=== PATIENT | female | born 1965 | race Caucasian/White ===

== ENCOUNTER 2019-08-02 01:28 | Inpatient (IN) | payer SELFPAY ==
[~2019-08-02] VITALS: Ht 165.1 cm; Wt 81.8 kg
[2019-08-02] VITALS (20 sets, daily range): BP systolic 92–116; BP diastolic 51–70; Ht 165.1 cm; Wt 81.8 kg
--- NOTE | ~2019-08-02 | HEMODYNAMI ---
PATIENT:MELISSA SALAS MEDICAL RECORD: [id number] : 63 [facility] DATE: 08/02/19 Generatedon:08/03/201911:57 Patient name: MELISSA SALAS Patient #: [id number] SSN: : 1965 Date of study: 08/03/2019 Page: Of Hemodynamic Procedure Report Patient Data Patient Demographics Procedure consent was obtained First Name: MELISSA Gender: Female Last Name: DEEPTHI : 1965 Patient #: [id number] Age: 54 year(s) Race: Unknown Additional ID: [id number] Contact details [address]: [address] [place] [address] State: [place] City: [place] Zip code: [address] Past Medical History Allergies Allergen Reaction Date Comments Reported Other allergy 08/03/2019 PCN, SULFA Admission Admission Data Admission Date: 08/02/2019 Admission Time: 2:00 Room #: [facility] Lab Results Lab Result Date: 08/03/2019 Lab Result Time: 0:00 Biochemistry Name Units Result Min Max BUN mg/dl 8 --(*---)-- 7 18 Creatinine mg/dl 0.5 -*(----)-- 0.6 1.3 eGFR ml/min 90 --(*---)-- 90 120 NONAFRICAN CBC Name Units Result Min Max Hematocrit % 39.4 -*(----)-- 42 54 Hemoglobin g/dl 13.7 --(*---)-- 13.5 17.5 Procedure Procedure Types Cath Procedure Diagnostic Procedure FFR/IVUS FFR Initial Sedation Charges Moderate Sedation up to 30 minutes PCI Procedure Coronary Stent Coronary Stent Initial Procedure Description Procedure Date Procedure Date: 08/03/2019 Procedure Start Time: 11:33 Procedure End Time: 11:56 Procedure Staff Name Function Parth Horan MD Performing Physician Patricia Goyal RT Monitor Marianne Salas RT Scrub Darnell Triana RT Machine Cementer Alicja Kang RN Nurse Procedure Data Cath Procedure Fluoroscopy Diagnostic fluoroscopy Total fluoroscopy Time: 3.8 time: 3.8 min min Diagnostic fluoroscopy Total fluoroscopy dose: 346 dose: 346 mGy mGy Contrast Material Contrast Material Type Amount (ml) Isovue 300 67 Entry Location Entry Primary Successful Side Size Upsize Upsize Entry Closure Succes sful Closure Location (Fr) 1 (Fr) 2 (Fr) Remarks Device Remarks Femoral Left 6 Fr Exoseal artery Short Estimated blood loss: 10 ml Procedure Complications No complications Procedure Medications Medication Administration Route Dosage 0.9% NaCl I.V. 100 ml/hr Oxygen etCO2 Nasal cannula 2 l/min Lidocaine 2% added to field 20 Heparin Flush Bag added to field 2 bags (1000units/500ml NS) Versed I.V. 2 mg Fentanyl I.V. 50 mcg Fentanyl I.V. 50 mcg Heparin Bolus I.V. 5000 units Hemodynamics Rest Heart Rate: 80 (bpm) Snapshots Pre Cath Intra NCS Post Cath Vital Signs Time Heart Resp SPO2 etCO2 NIBP (mmHg) Rhythm Pain Sedation Rate (ipm) (%) (mmHg) Status Level (bpm) 11:25:17 95 19 99 17.3 109/82(103) NSR 0 (11) 10(A) , No pain 11:29:24 97 18 99 8.2 98/61(75) NSR 0 (11) 10(A) , No pain 11:33:28 91 19 99 25.5 99/61(72) NSR 0 (11) 10(A) , No pain 11:38:15 90 17 98 12.7 95/58(75) NSR 0 (11) 10(A) , No pain 11:42:21 90 16 97 14 90/57(75) NSR 0 (11) 9(A) , No pain 11:46:25 89 16 98 14 100/58(78) NSR 0 (11) 10(A) , No pain 11:50:28 93 36 95 12 104/72(83) NSR 0 (11) 10(A) , No pain 11:54:36 94 18 95 12 109/68(85) NSR 0 (11) 10(A) , No pain Medications Time Medication Route Dose Verified Delivered Reason Notes Effectiveness by by 11:32:43 Versed I.V. 2 mg Parth Alicja for sedation Aung Kang RN 11:32:52 Fentanyl I.V. 50 Parth Alicja for sedation mcg Aung Kang RN 11:35:25 0.9% NaCl I.V. 100 Parth Parth used for ml/hr Aung Horan MD procedure 11:35:31 Oxygen etCO2 2 Parth Alba used for Nasal l/min Aung Horan MD procedure cannula 11:35:37 Lidocaine 2% added 20ml Parth Aprth for local to vial Aung Horan MD anesthetic field 11:35:43 Heparin Flush added 2 Parth Parth used for Bag to bags Aung Horan MD procedure (1000units/500ml field NS) 11:38:57 Fentanyl I.V. 50 Parth Alicja for sedation mcg Aung Kang RN 11:44:14 Heparin Bolus I.V. 5000 Parth Alicja for verified units Aung Kang antiplatelet with Dr. CURRIE therapy Anug Procedure Log Time Note 11:00:05 Darnell WHITMAN(R) sent for patient. Start room use. 11:03:06 Signed procedure consent form obtained from patient. 11:03:09 Procedure Status Urgent Heart Cath (IP). 11:03:11 Time tracking: Regular hours (M-F 7:00 - 5:00) 11:03:14 Plan of Care:Hemodynamics will remain stable., Cardiac rhythm will remain stable., Comfort level will be maintained., Respiratory function will remain adequate., Patient/ family verbilizes understanding of procedure., Procedure tolerated without complication., Recovers from procedure without complications.. 11:03:35 Patient allergic to Other allergyPCN, SULFA 11:04:19 Lab Result : BUN 8 mg/dl 11::19 Lab Result : Creatinine 0.5 mg/dl 11::19 Lab Result : eGFR NONAFRICAN 90 ml/min 11::19 Lab Result : Hemoglobin 13.7 g/dl 11::19 Lab Result : Hematocrit 39.4 % 11:11:51 Patient received from CVICU to CCL 1 Alert and oriented. Tansferred to table in Supine position. 11:11:52 Warm blankets applied, and rangel hugger turned on for patient comfort. 11:11:53 Correct patient and procedure confirmed by team. 11:11:53 ECG and BP/O2 sat monitors applied to patient. 11:24:19 Vital chart was started 11:27:58 Baseline sample Acquired. 11:28:01 Rhythm: sinus rhythm 11:28:02 Full Disclosure recording started 11::03 Pre-procedure instructions explained to patient. 11:28:03 Pre-op teaching completed and patient verbalized understanding. 11:28:05 Family in waiting room. 11:28:06 Patient NPO since Midnight. 11:28:08 Is patient on blood thinner?Yes 11:28:10 ACC The patient was administered the following blood thiners within the last 24 hours: ACCPlavix 11:28:11 Patient diabetic? Yes. 11:28:12 If diabetic: On Metformin? No 11:29:39 Previous problem with sedation/anesthesia? No ? 11:29:40 Snore? Yes 11:29:40 Sleep apnea? No 11:29:41 Deviated septum? No 11:29:42 Opens mouth fully? Yes 11:29:44 Sticks out tongue? Yes 11:29:47 Dentures? No ? 11:30:37 Airway obstruction? No ? 11:30:40 Pre procedure: left dorsailis pedis pulse 1+ Palpable, but thready & weak; easily obliterated 11:30:42 Patient pain scale 0/10 ?. 11:30:47 IV patent on arrival in left forearm with 0.9% NaCl at [facility]. 11:30:49 Lab results completed and on chart. 11:30:51 Left groin area was prepped with chlora-prep and draped in sterile fashion 11:30:51 Alarms reviewed by R. N. 11:30:52 Sharps counted by scrub and verified by R.N. 11:30:57 Use device set CATH PACK 11:30:58 ACIST Syringe (59302) opened to sterile field. 11:30:59 ACIST Hand Control (28353) opened to sterile field. 11:30:59 ACIST Manifold (83158) opened to sterile field. 11:30:59 Medline Cath Pack ([id number]) opened to sterile field. 11:31:00 Bag Decanter (2001S) opened to sterile field. 11:31:00 EMERALD Guide Wire (793-309) opened to sterile field. 11:31:05 --------ALL STOP TIME OUT------ 11:31:06 Final Timeout: patient, procedure, and site verified with staff and physician. All members of the team are in agreement. 11:31:07 Left groin site verified by team. 11:31:09 Fire Safety Assessment: A--An alcohol-based skin anteseptic being used preoperatively., C--Open oxygen or nitrous oxide is being used., D--An ESU, laser, or fiber-optic light is being used. 11:31:14 Physical assessment completed. ASA score P 2 - A patient with mild systemic disease as per Parth Horan MD. 11:31:17 1) 90+ Normal kidney functon but urine findings or structural abnormalities or genetic trait point to kidney disease. 11:31:20 Maximum allowable contrast dose (3.7 X eGFR X 0.75)250 ml. 11:31:22 Sedation plan: IV Moderate Sedation Medication:Versed, Fentanyl 11:32:43 Versed 2 mg I.V. was administered by Alicja Kang RN; for sedation; 11:32:52 Fentanyl 50 mcg I.V. was administered by Alicja Kang RN; for sedation; 11:33:20 Procedure started. 11:33:32 Local anesthetic to right femoral artery with Lidocaine 2% by Parth Horan MD.INITIAL ACCESS ONLY 11:33:54 SHEATH 6FR [place] (SSG315) opened to sterile field. 11:33:54 CHOICE PT Extra Support 182cm wire ([id number]) opened to sterile field. 11:33:55 INFLATOR Merit BasixCompak (XX0924) opened to sterile field. 11:33:55 TUBING High Pressure Extension Tubing (Albright) ([id number]) opened to sterile field. 11:33:59 GUIDE 6FR XBLAD 3.5 catheter ([id number]) opened to sterile field. 11:34:06 GUIDE 6FR AR 2.0 SH catheter ([id number]) opened to sterile field. 11:35:25 0.9% NaCl 100 ml/hr I.V. was administered by Parth Horan MD; used for procedure; 11:35:31 Oxygen 2 l/min etCO2 Nasal cannula was administered by Parth Horan MD; used for procedure; 11:35:37 Lidocaine 2% 20ml vial added to field was administered by Parth Horan MD; for local anesthetic; 11:35:43 Heparin Flush Bag (1000units/500ml NS) 2 bags added to field was administered by Parth Horan MD; used for procedure; 11:36:26 A 6 Fr Short sheath was inserted into the Left Femoral artery 11:37:40 6 Fr XBLAD 3.5 guide catheter was inserted over the wire 11:38:03 NextGxDXrata Plus pressure wire (13361F) opened to sterile field. 11:38:56 FFR/IFR wire advanced. 11:38:57 Fentanyl 50 mcg I.V. was administered by Alicja Kang RN; for sedation; 11:39:59 Wire advanced across lesion. 11:40:21 Pre PCI Site: [place] mRCA has 95% stenosis. 11:40:38 mCirc lesion measured at .90 with IFR 11:40:46 Wire removed. 11:40:46 Guide catheter removed. 11:40:52 6 Fr AR 2 SH guide catheter was inserted over the wire 11:42:24 CHOICE ES 182 wire advanced. 11:43:06 Wire advanced across lesion. 11:43:53 Place stent Inflation Number: 1 A COBRA RX 2.5 X 18 Stent was prepped and advanced across the Mid RCA . The stent was deployed at 11 MAGALIS for 0:00 (min:sec) . 11:44:09 Stent catheter was removed intact over wire. 11:44:14 Heparin Bolus 5000 units I.V. was administered by Alicja Kang RN; for antiplatelet therapy; verified with Dr. Horan 11:45:26 ACT drawn and resulted at 400> seconds. (normal therapeutic range 180-240 seconds). 11:45:49 Place stent Inflation Number: 1 A COBRA RX 2.5 X 24 Stent was prepped and advanced across the Prox RCA . The stent was deployed at 13 MAGALIS for 0:00 (min:sec) . 11:46:31 Stent catheter was removed intact over wire. 11:46:31 Guide catheter removed. 11:46:32 Wire removed. 11:46:40 EXOSEAL 6Fr (EX600) opened to sterile field. 11:46:50 Sheath removed intact; hemostasis achieved with Exoseal to the Left Femoral artery. 11:47:04 Procedure ended.(Physican Out) 11:48:48 Fluoroscopy time 03.80 minutes. 11:48:52 Fluoroscopy dose: 346 mGy 11:48:52 Flurop Dose total: 346 11:48:56 Contrast amount:Isovue 300 67ml. 11:49:01 Dose Area Product 25588 mGy/cm. 11:49:03 Maximum allowable dose exceeded? No. 11:49:04 Sharps counted by scrub and verified by R.N. 11:49:08 Post-op/insertion site Left Femoral artery dressed using a 4 x 4 and Tegaderm. 11:49:11 Post-procedure physical assessment completed. ASA score P 3 - A patient with severe systemic disease as per Parth Horan MD. 11:49:13 Post procedure rhythm: sinus rhythm 11:49:14 Estimated blood loss: 10 ml 11:49:16 Post procedure instruction explained to patient.Patient verbalizes understanding. 11:49:16 Patient needs reinforcement of post procedure teaching. 11:49:31 Procedure type changed to Cath procedure, Diagnostic procedure, FFR/IVUS, FFR Initial, Sedation Charges, Moderate Sedation up to 30 minutes, PCI procedure, Coronary Stent, Coronary Stent Initial 11:50:05 Procedure and supply charges have been captured, reviewed, submitted and are correct. 11:50:08 Procedure Complication : No complications 11:56:43 Vital chart was stopped 11:56:43 See physician's report for complete and final results. 11:56:47 Report given to CVICU. 11:56:49 Patient transfered to CVICU with Bed. 11:56:51 Procedure ended. 11:56:51 Full Disclosure recording stopped 11:56:55 End room use (Document Last) Intervention Summary Intervention Notes Time ActionType Lesion and Equipment Action# Pressure Duration Attributes Used 11:43:53 Place stent Mid RCA COBRA RX 1 11 00:00 2.5 X 18 Stent 11:45:49 Place stent Prox RCA COBRA RX 1 13 00:00 2.5 X 24 Stent Device Usage Item Name Manufacture Quantity Catalog Number Hospital Part Current Minimal Lot# / Charge Number Stock Stock Serial# Code ACIST Syringe Acist 1 63741 169547 003596 047585 20 (87259) Aircom ACIST Hand Acist 1 08968 399195 562875 668400 5 Control Medical (80320) Tek[employer]rix [employer] Inc ACIST Manifold Acist 1 38998 246361 927323 693354 5 (83811) Medical Systems Inc Medline Cath Medline 1 [id number] 034940 55906 327248 5 Pack ([id number]) Bag Decanter Microtek 1 2001S 019267 71041 056001 5 (2001S) Medical Inc. EMERALD Guide Cardinal 1 502455 706656 461309 240562 5 Wire (502-192) Health SHEATH 6FR Terumo 1 FDH695 101816 155816 917749 40 [place] (WHS167) CHOICE PT [place] 1 [id number] 640056 327135 531114 5 Extra Support Scientific 182cm wire ([id number]) INFLATOR Merit Merit 1 AV4548 767814 208183 842228 15 CondoGala Medical (KY8663) TUBING High Merit 1 [id number] 694589 78567 628621 10 Pressure Medical Extension Tubing (Albright) ([id number]) GUIDE 6FR Cardinal 1 [id number] 976250 037512 672854 10 XBLAD 3.5 Health catheter (41510151) GUIDE 6FR AR Medtronic 1 [id number] 821648 78918 292582 1 2.0 SH catheter ([id number]) Katy Katy 1 91699D 473222 [id number] 248966 5 Verrata Plus pressure wire (21940G) COBRA RX 2.5 X Celonova 1 083-50-09157 007023 [id number] 2017904 2 0 [id number] 18 stent Biosciences (085-72-21116) COBRA RX 2.5 X Celonova 1 [id number] 672652 [id number] 2900800 2 [id number] 24 stent Biosciences (992-99-41220) EXOSEAL 6Fr Cardinal 1 EX600 072543 180213 051030 10 (EX600) Health Signature Audit [place] Stage Time Signature Unsigned Intra-Procedure 08/03/2019 Patricia Goyal 11:57:06 AM RT(R) Signatures Performing Physician : Signature : Parth Horan MD Date : Time : Monitor : Patricia Goyal Signature : RT Date : Time : Nurse : Alicja Jorge Luis RN Signature : Date : Time : [address] [place] [address]
--- NOTE | ~2019-08-02 | HEMODYNAMI ---
PATIENT:MELISSA LACEY MEDICAL RECORD: [id number] : 63 LOCATION:[facility] D.CV ADMISSION DATE: 08/02/19 Generatedon:08/02/20193:20 Patient name: MELISSA LACEY Patient #: [id number] SSN: : 1965 Date of study: 08/02/2019 Page: Of Hemodynamic Procedure Report Patient Data Patient Demographics Procedure consent was obtained First Name: MELISSA Gender: Female Last Name: DEEPTHI : 1965 Patient #: [id number] Age: 54 year(s) Race: Unknown Additional ID: [id number] Contact details [address]: [address] [place] [address] State: [place] City: [place] Zip code: [address] Admission Admission Data Admission Date: 08/02/2019 Admission Time: 2:00 Room #: D.CV08 Procedure Procedure Types Cath Procedure Diagnostic Procedure LHC LHC w/Coronaries Sedation Charges Moderate Sedation up to 15 minutes PCI Procedure AMI/SVG/SUPERVISOR DISPLAY FABRICATION PTCA or Stent AMI-BMS/TOMÁS Initial Procedure Description Procedure Date Procedure Date: 08/02/2019 Procedure Start Time: 2:39 Procedure End Time: 2:51 Procedure Staff Name Function Melody Jarrett RT Monitor Benita Tai RN Nurse Parth Horan MD Performing Physician Wayne Swanson RT Scrub Procedure Data Cath Procedure Fluoroscopy Diagnostic fluoroscopy Total fluoroscopy Time: 2.6 time: 2.6 min min Diagnostic fluoroscopy Total fluoroscopy dose: 750 dose: 750 mGy mGy Contrast Material Contrast Material Type Amount (ml) Isovue 300 91 Entry Location Entry Primary Successful Side Size Upsize Upsize Entry Closure Succes sful Closure Location (Fr) 1 (Fr) 2 (Fr) Remarks Device Remarks Femoral Right 6 Fr Exoseal artery Short Estimated blood loss: 5 ml Diagnostic catheters Device Type Used For End Catheter Placement MULTIPACK Pigtail 5 Fr LV Angiography catheter MULTIPACK JL 4.0 5Fr Left Coronary catheter Angiography MULTIPACK 3DRC 5Fr Right Coronary catheter Angiography Procedure Complications No complications Procedure Medications Medication Administration Route Dosage Oxygen etCO2 Nasal cannula 2 l/min Lidocaine 2% added to field 20 Heparin Flush Bag added to field 2 bags (1000units/500ml NS) 0.9% NaCl I.V. bolus 250 ml Zofran I.V. 4 mg Integrilin (Bolus I.V. 7.3 ml 2mg/ml) Heparin Drip 1000 units/hr (07065zapsl/250 D5W) Heparin Bolus I.V. 3000 units Nitroglycerin IC/IA I.C. 200 mcg Nitroglycerin IC/IA I.C. 100 mcg Integrilin Drip I.V. drip 13.3 ml/hr (75mg/100ml) Integrilin (Bolus 7.3 ml 2mg/ml) Plavix P.O. 600 mg Versed I.V. 0.5 mg Hemodynamics Rest Heart Rate: 58 (bpm) Pressure Samples Time Site Value (mmHg) Purpose Heart Use Rate(bpm) 2:39 LV 99/70,72 Snapshot 81 Snapshots Pre Cath Intra NCS Post Cath Vital Signs Time Heart Resp SPO2 etCO2 NIBP Rhythm Pain Sedation Rate (ipm) (%) (mmHg) (mmHg) Status Level (bpm) 2:27:43 84 18 96 20.2 109/68(91) NSR 0 (11) 10(A) , No pain 2:31:50 80 24 95 28.4 110/70(88) NSR 0 (11) 10(A) , No pain 2:35:58 83 18 92 26.2 93/67(81) NSR 0 (11) 10(A) , No pain 2:40:04 80 19 100 25.4 94/64(75) NSR 0 (11) 10(A) , No pain 2:44:10 82 19 98 12.7 96/64(79) NSR 0 (11) 10(A) , No pain 2:48:16 86 18 98 26.2 88/60(79) NSR 0 (11) 10(A) , No pain 2:57:41 83 18 100 21 102/64(82) NSR 0 (11) 10(A) , No pain Medications Time Medication Route Dose Verified Delivered Reason Not es Effectiveness by by 2:29:58 Heparin Drip I.V. 1000 Parth Joy Per physician (24107hhkhq/250 drip, units/hr Aung Tai RN D5W) stopped at 0229 2:32:18 Oxygen etCO2 2 l/min Patrh Joy used for Nasal Aung Tai RN procedure cannula 2:32:26 Lidocaine 2% added 20ml Parth Alba for local to vial Aung Horan MD anesthetic field 2:32:32 Heparin Flush added 2 bags Parth Alba used for Bag to Aung Horan MD procedure (1000units/500ml field NS) 2:32:51 0.9% NaCl I.V. 250 ml Parth Jyo Per physician x 2 bolus Aung Tai RN boluses delivered total of 500 mls. 2:32:58 Zofran I.V. 4 mg Parth Joy Per physician Aung Tai RN 2:39:30 Integrilin I.V. 7.3 ml Parth Joy for was clay (Bolus 2mg/ml) Aung Tai RN antiplatelet 2.7 ml of therapy vial 2:41:50 Versed I.V. 0.5 mg Parth Joy for sedation Aung Tai RN 2:43:31 Heparin Bolus I.V. 3000 Parth Joy for imelda ifed units Aung Tai RN anticoagulation with dr horan 2:47:13 Nitroglycerin I.C. 200 mcg Parth Alba for IC/IA Aung Horan MD vasodilation 2:48:30 Nitroglycerin I.C. 100 mcg Parth Alba for IC/IA Aung Horan MD vasodilation 2:49:21 Integrilin Drip I.V. 13.3 Parth Joy for (75mg/100ml) drip ml/hr Aung Tai RN antiplatelet therapy 2:50:43 Integrilin IC 7.3 ml Parth Alba for was clay (Bolus 2mg/ml) Aung Horan MD antiplatelet 2.7 ml of therapy vial 3:04:40 Plavix P.O. 600 mg Parth Joy for Aung Tai RN antiplatelet therapy Procedure Log Time Note 2:08:00 Diagnostic Cath Status : Elective 2:08:28 Procedure Status Emergent Heart Cath (AMI). 2:08:32 Wayne Swanson RT(R) sent for patient. Start room use. 2:08:33 Time tracking: Regular hours (M-F 7:00 - 5:00) 2:08:38 Plan of Care:Hemodynamics will remain stable., Cardiac rhythm will remain stable., Comfort level will be maintained., Respiratory function will remain adequate., Patient/ family verbilizes understanding of procedure., Procedure tolerated without complication., Recovers from procedure without complications.. 2:26:36 Vital chart was started 2:26:55 Patient received from ED to CCL 1 Alert and oriented. Tansferred to table in Supine position. 2:26:57 Signed procedure consent form obtained from patient. 2:26:58 Warm blankets applied, and rangel hugger turned on for patient comfort. 2:26:59 Correct patient and procedure confirmed by team. 2:27:00 ECG and BP/O2 sat monitors applied to patient. 2:27:01 Baseline sample Acquired. 2:27:09 Rhythm: sinus tachycardia, w/ ST elevation 2:27:11 Full Disclosure recording started 2:27:16 H&P Date Dictated: 08/02/2019 New H&P dictated by physician.. 2:27:18 Pre-op teaching completed and patient verbalized understanding. 2:27:18 Pre-procedure instructions explained to patient. 2:27:20 Family in waiting room. 2:27:25 Patient NPO since Midnight. 2:27:27 Is the patient allergic to Iodine/contrast media? No. 2:27:29 Was the patient premedicated? No 2:27:30 Is patient on blood thinner?Yes 2:27:36 ACC The patient was administered the following blood thiners within the last 24 hours: ACCHeparin 2:27:39 Patient diabetic? No. 2:27:41 Previous problem with sedation/anesthesia? No ? 2:27:44 Snore? Yes 2:27:45 Sleep apnea? No 2:27:46 Deviated septum? No 2:27:47 Opens mouth fully? Yes 2:27:48 Sticks out tongue? Yes 2:27:50 Airway obstruction? No ? 2:27:53 Dentures? No ? 2:28:00 Pre procedure: right dorsailis pedis pulse 2+ Normal; easily identifiable; not easily obliterated 2:28:02 Pre procedure: left dorsailis pedis pulse 2+ Normal; easily identifiable; not easily obliterated 2:28:05 Patient pain scale 0/10 ?. 2:28:12 IV patent on arrival in left forearm with 0.9% NaCl at [facility]. 2:28:15 Lab results completed and on chart. 2:28:19 Right groin area was prepped with chlora-prep and draped in sterile fashion 2:28:21 Sharps counted by scrub and verified by R.N. 2:28:21 Alarms reviewed by R. N. 2:29:58 Heparin Drip (70997eqfre/250 D5W) 1000 units/hr I.V. drip, stopped at 0229 was administered by Benita Tai RN; Per physician; 2:30:12 Physician paged 2:32:18 Oxygen 2 l/min etCO2 Nasal cannula was administered by Benita Tai RN; used for procedure; 2:32:26 Lidocaine 2% 20ml vial added to field was administered by Parth Horan MD; for local anesthetic; 2:32:32 Heparin Flush Bag (1000units/500ml NS) 2 bags added to field was administered by Parth Horan MD; used for procedure; 2:32:51 0.9% NaCl 250 ml I.V. bolus was administered by Benita Tai RN; Per physician; x 2 boluses delivered total of 500 mls. 2:32:58 Zofran 4 mg I.V. was administered by Benita Tai RN; Per physician; 2:35:28 Use device set Femoral Dx 2:35:29 ACIST Syringe (95499) opened to sterile field. 2:35:30 Medline Cath Pack ([id number]) opened to sterile field. 2:35:30 Bag Decanter () opened to sterile field. 2:35:32 ACIST Manifold (67659) opened to sterile field. 2:35:32 ACIST Hand Control (62276) opened to sterile field. 2:35:33 DIAGNOSTIC Multipack 5Fr catheter set (OQ3077) opened to sterile field. 2:35:34 Tegaderm 4 x 4 (1626W) opened to sterile field. 2:35:36 EMERALD Guide Wire (502-903) opened to sterile field. 2:36:09 SHEATH 6FR Wyalusing (HRT739) opened to sterile field. 2:36:10 CHOICE PT Extra Support 182cm wire ([id number]) opened to sterile field. 2:36:10 INFLATOR Becca Sanders (ZD1942) opened to sterile field. 2:38:36 Final Timeout: patient, procedure, and site verified with staff and physician. All members of the team are in agreement. 2:38:36 --------ALL STOP TIME OUT------ 2:38:38 Right groin site verified by team. 2:38:42 Fire Safety Assessment: A--An alcohol-based skin anteseptic being used preoperatively., C--Open oxygen or nitrous oxide is being used., D--An ESU, laser, or fiber-optic light is being used. 2:38:48 Physical assessment completed. ASA score P 2 - A patient with mild systemic disease as per Parth Horan MD. 2:38:51 Sedation plan: IV Moderate Sedation Medication:Versed, Fentanyl 2:39:01 Procedure started. 2:39:07 Local anesthetic to right femoral artery with Lidocaine 2% by Parth Horan MD.INITIAL ACCESS ONLY 2:39:10 A 6 Fr Short sheath was inserted into the Right Femoral artery 2:39:30 Integrilin (Bolus 2mg/ml) 7.3 ml I.V. was administered by Benita Tai RN; for antiplatelet therapy; wasted 2.7 ml of vial 2:39:37 A MULTIPACK Pigtail 5 Fr catheter was advanced over the wire and used for LV Angiography. 2:39:48 LV hemodynamics recorded. 2:39:49 LV gram done using LEDEZMA 2:39:52 Injector settings: Ml/sec: 5, Volume: 15, 2:39:58 EF : 30 % 2:40:01 Catheter removed. 2:40:07 A MULTIPACK JL 4.0 5Fr catheter was advanced over the wire and used for Left Coronary Angiography. 2:40:36 LCA angiography performed. 2:40:40 Injector settings: Ml/sec: 3, Volume: 6, 2:41:11 Catheter removed. 2:41:16 A MULTIPACK 3DRC 5Fr catheter was advanced over the wire and used for Right Coronary Angiography. 2:41:46 GUIDE 6FR XBLAD 3.5 catheter ([id number]) opened to sterile field. 2:41:50 Versed 0.5 mg I.V. was administered by Benita Tai RN; for sedation; 2:41:51 RCA angiography performed. 2:41:57 Injector settings: Ml/sec: 3, Volume: 6, 2:42:01 ACCDominant side:Co-Dominant 2:42:03 Catheter removed. 2:42:04 Proceeding to intervention. 2:42:22 Pre PCI Site: [place] pLAD has 95% stenosis. 2:42:31 ACC Pre-intervention MANDA Flow is 2. 2:42:40 6 Fr xblad 3.5 guide catheter was inserted over the wire 2:42:49 choice pt wire advanced. 2:43:31 Heparin Bolus 3000 units I.V. was administered by Benita Tai RN; for anticoagulation; verifed with dr horan 2:44:29 Wire advanced across lesion. 2:45:47 Place stent Inflation Number: 1 A COBRA RX 3.5 X 15 Stent was prepped and advanced across the Prox LAD 95. The stent was deployed at 11 MAGALIS for 0:10 (min:sec) . 2:47:13 Nitroglycerin IC/IA 200 mcg I.C. was administered by Parth Horan MD; for vasodilation; 2:48:30 Nitroglycerin IC/IA 100 mcg I.C. was administered by Parth Horan MD; for vasodilation; 2:49:18 Stent catheter was removed intact over wire. 2:49:19 Wire removed. 2:49:20 Guide catheter removed. 2:49:21 Integrilin Drip (75mg/100ml) 13.3 ml/hr I.V. drip was administered by Benita Tai RN; for antiplatelet therapy; 2:49:27 ACC Post-intervention MANDA Flow is 2. 2:49:54 Sheath removed intact; hemostasis achieved with Exoseal to the Right Femoral artery. 2:49:56 Procedure ended.(Physican Out) 2:50:07 Fluoroscopy time 02.60 minutes. 2:50:11 Fluoroscopy dose: 750 mGy 2:50:11 Flurop Dose total: 750 2:50:18 Dose Area Product 78306 mGy/cm. 2:50:22 Contrast amount:Isovue 300 91ml. 2:50:24 Sharps counted by scrub and verified by R.N. 2:50:28 Insertion/operative site no bleeding no hematoma. 2:50:42 Post-op/insertion site Right Femoral artery dressed using a 4 x 4 and Tegaderm. 2:50:43 Integrilin (Bolus 2mg/ml) 7.3 ml IC was administered by Parth Horan MD; for antiplatelet therapy; wasted 2.7 ml of vial 2:50:44 Post Procedure Pulses reassessed and unchanged 2:50:47 Post procedure rhythm: unchanged. 2:50:49 Estimated blood loss: 5 ml 2:50:51 Post procedure instruction explained to patient.Patient verbalizes understanding. 2:50:52 Patient needs reinforcement of post procedure teaching. 2:51:11 Procedure type changed to Cath procedure, Diagnostic procedure, LHC, LHC w/Coronaries, Sedation Charges, Moderate Sedation up to 15 minutes, PCI procedure, AMI/SVG/SUPERVISOR DISPLAY FABRICATION PTCA or Stent, AMI-BMS/TOMÁS Initial 2:51:12 Procedure and supply charges have been captured, reviewed, submitted and are correct. 2:51:17 Procedure Complication : No complications 2:51:20 See physician's report for complete and final results. 2:51:20 Vital chart was stopped 2:51:28 Report given to CVICU. 2:51:31 Patient transfered to CVICU with Stretcher. 2:51:33 Full Disclosure recording stopped 2:51:33 Procedure ended. 2:51:43 ACC-PCI Only Patient was given prescriptions, or instructed by Parth Horan MD to start/continue the following medications upon discharge: Plavix 2:51:45 End room use (Document Last) 2:56:08 Plavix will be given in CVICU due to pt active vomiting status. 3:00:49 EXOSEAL 6Fr (EX600) opened to sterile field. 3:01:01 Quick Combo opened to sterile field. 3:04:40 Plavix 600 mg P.O. was administered by Benita Tai RN; for antiplatelet therapy; Intervention Summary Intervention Notes Time ActionType Lesion and Equipment Action# Pressure Duration Attributes Used 2:45:47 Place stent Prox LAD COBRA RX 1 11 00:10 3.5 X 15 Stent Device Usage Item Name Manufacture Quantity Catalog Number Hospital Part Current Minimal Lot# / Charge Number Stock Stock Serial# Code ACIST Syringe Acist 1 98821 402688 196175 [id number] 20 (15842) Medical Systems Inc Bag Decanter Microtek 1 2001S 346030 84686 240041 5 (2001S) Medical Inc. Medline Cath Medline 1 [id number] 622056 30950 382730 5 Pack ([id number]) ACIST Hand Acist 1 38155 728309 038301 809874 5 Control Medical (88866) Systems Inc ACIST Manifold Acist 1 19819 023338 587855 217739 5 (07588) Medical Systems Inc DIAGNOSTIC Cardinal 1 [id number] 163065 68988 094252 30 Multipack 5Fr Health catheter set (UM9736) Tegaderm 4 x 4 3M 1 1626W 695331 594783 260595 5 (1626W) EMERALD Guide Cardinal 1 502-455 147391 919652 931492 5 Wire (502-455) Health SHEATH 6FR Terumo 1 OGY117 138473 333551 132356 40 Wyalusing (OOI191) INFLATOR Merit Merit 1 MK5868 315851 949166 874903 15 GoGold ResourcesBlue Mountain Hospital, Inc.[employer]ending [employer] (QD1178) CHOICE PT [place] 1 [id number] 273334 953121 873295 5 Extra Support Scientific 182cm wire ([id number]) MULTIPACK Cardinal 1 476644 5 Pigtail 5 Fr Health catheter MULTIPACK JL Cardinal 1 754355 5 4.0 5Fr Health catheter MULTIPACK 3DRC Cardinal 1 399755 5 5Fr catheter Health GUIDE 6FR Cardinal 1 [id number] 848210 594720 932837 10 XBLAD 3.5 Health catheter (16064069) COBRA RX 3.5 X Celonova 1 728-54-69301 613177 [id number] 0890995 0 [id number] 15 stent Biosciences () EXOSEAL 6Fr Cardinal 1 EX600 413451 611407 514349 10 (EX600) [employer] Forsake Systems 1 62165-008179 283016 225333 934355 5 Signature Audit [place] Stage Time Signature Unsigned Intra-Procedure 08/02/2019 Melody Swanson RT(R) 3:06:47 AM RT(R) 08/02/2019 3:19:03 AM Intra-Procedure 08/02/2019 Wayne Swanson 3:20:47 AM RT(R) Signatures Monitor : Melody Jarrett RT Signature : Date : Time : Nurse : Buffie Tai RN Signature : Date : Time : Performing Physician : Signature : Parth Tauth MD Date : Time : [place] [address] [place] [address]
[2019-08-02 02:01] LABS: HEMATOCRIT 40.2 % (36.0-48.0); HEMOGLOBIN 14.5 g/dL (12-16); MCH 31.6 pg (26.0-34.0); MCHC 36.1 g/dL (31.0-37.0); MCV 87.6 fL (80.0-100.0); MEAN PLATELET VOLUME 11.3 fL (7.4-10.4); PLATELET COUNT 321 10x3/uL (130-400); RBC 4.59 10x6/uL (4.00-5.40); RDW 12.4 % (11.5-14.5); WBC 22.8 10x3/uL (4.8-10.8)
[2019-08-02 02:06] LABS: INR 1.05 (0.85-1.17); PROTIME 13.2 SECONDS (11.6-15.0)
[2019-08-02 02:07] LABS: APTT 67.4 SECONDS (22.8-39.4)
[2019-08-02 02:29] LABS: LYMPHOCYTES 12 % (15-50); MONOCYTES 2 % (2-11); NEUTROPHILS 86 % (40-80); PLATELET ESTIMATE NORMAL
--- NOTE | 2019-08-02 03:00 | NUR ---
ORDERS RECEIVED FROM ACUTE DIALYSIS REGISTERED NURSE RN TO CONTINUE INTEGRILIN INFUSION AT 13.3 ML/HR UNTIL BAG EMPTY.
--- NOTE | 2019-08-02 03:10 | NUR ---
PATIENT ARRIVED TO UNIT VIA BED, ACCOMPANIED BY ADMISSION STAFF FROM [facility]. ALL ICU MONITORING INITIATED. TEMP LOW, BEAR HUGGER TURNED ON. PPP. RT GROIN DRESSING C/D/I, NO HEMATOMA. DENIES PAIN. CALL LIGHT WITHIN REACH. WILL CONTINUE TO MONITOR. 0317 DAUGHTER AND AT BEDSIDE, UPDATE GIVEN. PT AND FAMILY DENY NEEDS.
[2019-08-02 03:13] LABS: ALBUMIN 3.2 g/dL (3.4-5.0); ALKALINE PHOSPHATASE 163 U/L (46-116); ALT (SGPT) 79 U/L (10-68); BILIRUBIN - TOTAL 0.58 mg/dL (0.2-1.3); CALCIUM 8.7 mg/dL (8.5-10.1); CARBON DIOXIDE 23.9 mmol/L (21.0-32.0); CHLORIDE - SERUM 101 mmol/L (98-107); CREATININE - SERUM 0.8 mg/dL (0.6-1.3); PRO BNP 127 pg/mL (0-125); PROTEIN - SERUM 6.4 g/dL (6.4-8.2); SODIUM 136 mmol/L (136-145); UREA NITROGEN 11 mg/dL (7-18); eGFR NON AFRICAN AMERICAN 79 mL/min (90-120)
[2019-08-02 03:14] LABS: CALC OSMOLALITY 288 mosm/kg (275-300); CREATINE KINASE 3473 UL (21-215)
[2019-08-02 03:15] LABS: GLUCOSE 416 mg/dL (74-106); TROPONIN-I 132.688 ng/mL (0.000-0.060)
[2019-08-02 03:16] LABS: CKMB 515.5 U/L (0.0-3.6)
--- NOTE | 2019-08-02 03:20 | NUR ---
DR JORGENSEN NOTIFIED OF GLUC 416 AND TROP 132. NEW ORDER REC'D FOR PHYSICIAN CONSULT. Zulma VIDES APN PAGED.
--- NOTE | 2019-08-02 03:51 | NUR ---
Zulma VIDES NOTIFIED OF CONSULT, STATUS REPORT/LABS GIVEN. SEE NEW ORDERS.
--- NOTE | 2019-08-02 03:59 | NUR ---
HUMALOG NOT AVAILABLE TO ADMINISTER, PHARMACY NOT HERE, CALLED AND SPOKE TO LAMINATING MACHINE FEEDER, SHE WILL BRING TO UNIT. WILL WAIT FOR AVAILABILITY TO ADMINISTER.
--- NOTE | 2019-08-02 05:01 | NUR ---
ASSISSTED TO BEDPAN, 500 ML YELLOW UOP, CLEANED AND REPOSITIONED IN BED. DENIES OTHER NEEDS. CALL LIGHT WITHIN REACH.
--- NOTE | 2019-08-02 07:00 | NUR ---
SHIFT REPORT RECEIVED. PT RESTING IN BED. ON 2L OF O2 VIA NC. DENIES CHEST PAIN AT THIS TIME. HAS PIV ON RIGHT HAND AND LEFT FOREARM. DRESSING NOTED ON RIGHT GROIN, C/D/I. PEDAL PULSES PALPABLE. COMPLETE SHIFT ASSESSMENT CHARTED IN FLOWSHEET. SIDE RAILS UP X 2. BED LOW POSITION. CALL LIGHT IN REACH.
[2019-08-02 09:25] LABS: BASOPHILS 0.1 % (0-2); EOSINOPHILS 0.2 % (0-7); HEMATOCRIT 41.2 % (36.0-48.0); HEMOGLOBIN 14.4 g/dL (12-16); IMMATURE GRANULOCYTES 0.5 % (0-5); LYMPHOCYTES 16.3 % (15-50); MCH 30.9 pg (26.0-34.0); MCV 88.4 fL (80.0-100.0); MEAN PLATELET VOLUME 10.2 fL (7.4-10.4); MONOCYTES 5.2 % (2-11); NEUTROPHILS 77.7 % (40-80); RBC 4.66 10x6/uL (4.00-5.40); RDW 12.6 % (11.5-14.5)
[2019-08-02 09:30] LABS: PLATELET COUNT 250 10x3/uL (130-400); WBC 16.3 10x3/uL (4.8-10.8)
[2019-08-02 09:39] LABS: CALC OSMOLALITY 289 mosm/kg (275-300); CALCIUM 8.7 mg/dL (8.5-10.1); CARBON DIOXIDE 28.8 mmol/L (21.0-32.0); CHLORIDE - SERUM 106 mmol/L (98-107); CREATININE - SERUM 0.7 mg/dL (0.6-1.3); MAGNESIUM - SERUM 1.7 mg/dL (1.8-2.4); PHOSPHOROUS 4.5 mg/dL (2.5-4.9); POTASSIUM - SERUM 4.6 mmol/L (3.5-5.1); SODIUM 142 mmol/L (136-145); UREA NITROGEN 10 mg/dL (7-18); eGFR NON AFRICAN AMERICAN > 90 mL/min (90-120)
[2019-08-02 09:41] LABS: GLUCOSE 250 mg/dL (74-106)
--- NOTE | 2019-08-02 10:00 | NUR ---
AM MEDS GIVEN. PT DENIES ANY CHEST PAIN AT THIS TIME. VSS. POOR APPETITE NOTED. DENIES FURTHER NEEDS. WILL CONTINUE TO MONITOR.
--- NOTE | 2019-08-02 10:11 | NUR ---
PT REPORTED NAUSEA AT THIS TIME. DR. LAYNE CALLED. ORDERED ZOFRAN TO BE GIVEN FOR NAUSEA.
--- NOTE | 2019-08-02 11:00 | NUR ---
REASSESSMENT COMPLETE, NO CHANGES NOTED, PT RESTING AT THIS TIME, VSS, CALL LIGHT IN REACH
--- NOTE | 2019-08-02 12:11 | NUR ---
PT AMBULATED TO BATHROOM. DENIES ANY CHEST PAIN AT THIS TIME. DAUGHTER AT BEDSIDE. MEAL TRAY IN ROOM. NO FUTHER NEEDS. WILL CONTINUE TO MONITOR.
[2019-08-02 12:21] LABS: CREATINE KINASE 6019 UL (21-215)
[2019-08-02 12:45] LABS: CKMB 1122.9 U/L (0.0-3.6)
--- NOTE | 2019-08-02 13:00 | NUR ---
PT RESTING AT THIS TIME, DENIES ANY NEEDS OR WANTS, VSS, CALL LIGHT IN REACH
--- NOTE | 2019-08-02 13:13 | NUR ---
FRANCESCOK SCANNED AND COPY PLACED IN JAN.
--- NOTE | 2019-08-02 15:00 | NUR ---
C/O HEARTBURN, DR. LAYNE NOTIFIED, NEW ORDERS RECIEVED,
--- NOTE | 2019-08-02 15:39 | NUR ---
DR. JORGENSEN AT BEDSIDE. WILL TAKE PATIENT TO [facility] TOMORROW AROUND NOON. PT CAN HAVE LIGHT BREAKFAST. NOTHING AFTER BREAKFAST.
[2019-08-02 16:36] LABS: CKMB 763.6 U/L (0.0-3.6); CREATINE KINASE 3359 UL (21-215)
[2019-08-02 16:38] LABS: TROPONIN-I 177.967 ng/mL (0.000-0.060)
--- NOTE | 2019-08-02 16:54 | NUR ---
TROPONIN LEVEL 177.[address] JORGENSEN. ORDERED TO DISCONTINUE TROPONIN LEVEL CHECKS.
--- NOTE | 2019-08-02 19:00 | NUR ---
BEDSIDE REPORT AND SHIFT ASSESSMENT COMPLETE, SEE FLOWSHEET. VSS, NO SIGNS OF ACUTE DISTRESS NOTED. R GROIN CATH SITE WNL, DRESSING CDI. PT DENIES PAIN. WILL CONTINUE TO MONITOR.
--- NOTE | 2019-08-02 19:22 | MORECARE ---
CASE MANAGEMENT DISCHARGE SUMMARY PATIENT: MELISSA LACEY UNIT: [id number] ADM DATE: 08/02/19 AGE: 54 : 63 SEX: F ROOM/BED: [facility] AUTHOR: ITZ CHASE PHYSICIAN: REFERRING PHYSICIAN: ALFONSO JORGENSEN MD DATE OF SERVICE: 08/02/19 Discharge Plan Patient Name: [facility]ELISSA LACEY [facility] [facility] 1965 Planned Disposition: Home Anticipated Discharge Date: Discharge Date: Expected LOS: Initial Reviewer: [email or web address] Initial Review Date: 08/02/2019 Generated: 08/02/19 8:21 pm DCPIA - Discharge Planning Initial Assessment Updated by [email or web address]: Summer Cramer on 08/02/19 7:18 pm * Is the patient Alert and Oriented? Yes * How many steps to enter\exit or inside your home? * PCP NO PCP * [facility] * Preadmission Environment Home with Family * ADLs Independent * Equipment None * List name and contact numbers for known caregivers / representatives who currently or will assist patient after discharge: DENNIS LACEY - SPOUSE -- [phone] * Verbal permission to speak to the caregivers and representatives has been obtained from the patient. No * Community resources currently utilized None * Additional services required to return to the preadmission environment? No * Can the patient safely return to the preadmission environment? Yes * Has this patient been hospitalized within the prior 30 days at any hospital? No Patient Name: MELISSA LACEY Page 89984 at 1922 All edits/amendments must be made on the electronic document DICTATION DATE: 08/02/191920 PHYSICIAN ALLERGIST IMMUNOLOGIST: LOUIS 08/02/191920 RPT#: [id number] DC DATE: STATUS: ADM IN [address] [place] [address] END OF REPORT
--- NOTE | 2019-08-02 19:28 | MORECARE ---
CASE MANAGEMENT DISCHARGE SUMMARY PATIENT: MELISSA LACEY UNIT: [id number] ADM DATE: 08/02/19 AGE: 54 : 63 SEX: F ROOM/BED: D.08 AUTHOR: RENA,DOC PHYSICIAN: REFERRING PHYSICIAN: ALFONSO JORGENSEN MD DATE OF SERVICE: 08/02/19 Discharge Plan Patient Name: MELISSA LACEY Facility: [facility]:[place] : 1965 Planned Disposition: Home Anticipated Discharge Date: Discharge Date: Expected LOS: Initial Reviewer: [email or web address] Initial Review Date: 08/02/2019 Generated: 08/02/19 8:28 pm Comments DCP- Discharge Planning Updated by [email or web address]: Summer Cramer on 08/02/19 6:[address] Patient Name: MELISSA LACEY Admission Status: ER Accout number: [id number] Admission Date: 08-02-2019 : 1965 Admission Diagnosis: Attending: MAYLIN JORGENSEN Current LOS: 1 Anticipated DC Date: Planned Disposition: Home Primary Insurance: UNINSURED DISCOUNT PLAN Discharge Planning Comments: CM met with patient at bedside after explaining CM role and obtaining verbal consent. Patient lives at home with her Dennis where she is independent with her care and plans to return there upon discharge. Patient feels this would be a safe discharge. CM discussed availability / needs of home health and medical equipment. Patient denies any discharge needs at this time. Patient states she will have her family drive her home upon discharge. Patient doesn't have any insurance and med-data has been up to evaluate and patient doesn't qualify per patient. Patient may need assistance with discharge medications. CM will continue to follow and assist as needed with discharge planning / needs. Manager Contracting: Summer Cramer DCPIA - Discharge Planning Initial Assessment Updated by [email or web address]: Summer Cramer on 08/02/19 7:18 pm * Is the patient Alert and Oriented? Yes * How many steps to enter\exit or inside your home? * PCP NO PCP * [facility] * Preadmission Environment Home with Family * ADLs Independent * Equipment None * List name and contact numbers for known caregivers / representatives who currently or will assist patient after discharge: DENNIS LACEY - SPOUSE -- [phone] * Verbal permission to speak to the caregivers and representatives has been obtained from the patient. No * Community resources currently utilized None * Additional services required to return to the preadmission environment? No * Can the patient safely return to the preadmission environment? Yes * Has this patient been hospitalized within the prior 30 days at any hospital? No Last DP export: 08/02/19 6:21 pm Patient Name: MELISSA LACEY Page 21876 at 1928 All edits/amendments must be made on the electronic document DICTATION DATE: 08/02/191927 SERVICE ORDER DISPATCHER: LOUIS 08/02/191927 RPT#: [id number] [place] DATE: STATUS: ADM IN [facility] [address] [place] [address] END OF REPORT
--- NOTE | 2019-08-02 20:30 | NUR ---
PT AMBULATED TO RESTROOM WITH FAMILY WITH MINIMAL ASSISTANCE.
--- NOTE | 2019-08-02 21:00 | NUR ---
MEDS GIVEN PER MAR. VSS, NO SIGNS OF ACUTE DISTRESS NOTED. FAMILY AT BEDSIDE. DENIES NEEDS AT THIS TIME. WILL CONTINUE TO MONITOR.
[2019-08-02 22:31] LABS: CKMB 423.9 U/L (0.0-3.6); CREATINE KINASE 1776 UL (21-215); TROPONIN-I 103.239 ng/mL (0.000-0.060)
--- NOTE | 2019-08-02 23:00 | NUR ---
REASSESSMENT COMPLETE. PT SLEEPING. CALL LIGHT IN REACH.
[2019-08-03] VITALS (14 sets, daily range): BP systolic 85–109; BP diastolic 47–65
--- NOTE | 2019-08-03 01:00 | NUR ---
PT SLEEPING. VSS, NO SIGNS OF ACUTE DISTRESS NOTED AT THIS TIME. WILL CONTINUE TO MONITOR.
--- NOTE | 2019-08-03 03:00 | NUR ---
REASSESSMENT COMPLETE. PT REQUESTED THAT HER DAUGHTER HELP BATHE HER THIS AM. VSS, NO SIGNS OF ACUTE DISTRESS NOTED. R GROIN CATH SITE WNL, DRESSING CDI. DENIES NEEDS AT THIS TIME, CALL LIGHT IN REACH. WILL CONTINUE TO MONITOR.
[2019-08-03 04:54] LABS: BASOPHILS 0.2 % (0-2); EOSINOPHILS 1.4 % (0-7); HEMATOCRIT 39.4 % (36.0-48.0); HEMOGLOBIN 13.7 g/dL (12-16); IMMATURE GRANULOCYTES 0.3 % (0-5); LYMPHOCYTES 26.6 % (15-50); MCH 31.1 pg (26.0-34.0); MCHC 34.8 g/dL (31.0-37.0); MCV 89.3 fL (80.0-100.0); MEAN PLATELET VOLUME 10.8 fL (7.4-10.4); MONOCYTES 4.6 % (2-11); NEUTROPHILS 66.9 % (40-80); PLATELET COUNT 205 10x3/uL (130-400); RBC 4.41 10x6/uL (4.00-5.40); RDW 12.5 % (11.5-14.5); WBC 12.7 10x3/uL (4.8-10.8)
--- NOTE | 2019-08-03 05:00 | NUR ---
CHG BATH AND LINEN CHANGE COMPLETE WITH ASSISTANCE FROM DAUGHTER.
[2019-08-03 05:17] LABS: ALBUMIN 2.8 g/dL (3.4-5.0); ALKALINE PHOSPHATASE 157 U/L (46-116); ALT (SGPT) 125 U/L (10-68); BILIRUBIN - TOTAL 0.64 mg/dL (0.2-1.3); CALC OSMOLALITY 276 mosm/kg (275-300); CALCIUM 8.4 mg/dL (8.5-10.1); CARBON DIOXIDE 26.1 mmol/L (21.0-32.0); CHLORIDE - SERUM 101 mmol/L (98-107); CREATININE - SERUM 0.5 mg/dL (0.6-1.3); GLUCOSE 216 mg/dL (74-106); POTASSIUM - SERUM 3.4 mmol/L (3.5-5.1); PRO BNP 1584 pg/mL (0-125); PROTEIN - SERUM 5.9 g/dL (6.4-8.2); SODIUM 136 mmol/L (136-145); THYROID STIMULATING HORMONE 0.66 uIU/mL (0.36-3.74); UREA NITROGEN 8 mg/dL (7-18); eGFR NON AFRICAN AMERICAN > 90 mL/min (90-120)
--- NOTE | 2019-08-03 07:00 | NUR ---
RECEIVED REPORT. PATIENT RESTING IN BED C STABLE VSS. O2 2LNC. LEFT AND RIGHT HAND PIV SALINE LOCKED. RIGHT GROIN DRESSING FROM HEART CATH YESTERDAY WITH SOME OLD DRIED BLOOD, NO NEW BLEEDING. AA AND ORIENTED. WILL CONTINUE TO MONITOR. NO COMPLAINTS
--- NOTE | 2019-08-03 09:00 | NUR ---
OBTAINED CONSENT FOR HEART CATH TODAY. HEIGHT, WEIGHT, AND TODAYS LABS PRINTED AND ON FRONT OF CHART.
--- NOTE | 2019-08-03 10:25 | NUR ---
PATIENT SLIGHTLY HYPOTENSIVE: 85/49 WITH MAP 61. ADMINISTERING 300CC NS BOLUS SINCE KIDNEY FUNCTION GOOD AND EF NOT TERRIBLE. IF NO RESULT, WILL PAGE DR. JORGENSEN
--- NOTE | 2019-08-03 10:56 | NUR ---
Nutrition Consult/Follow-up: Received consult for diabetic education. Newly diagnosed. Pt reports appetite/PO intake improved throughout the day yesterday. Awaiting heart cath today. Diet: Diabetic, Dental Soft PO intake: 23% avg yesterday Wt: 180# Last BM: HEAT TREATING BLUER Labs noted: Glu 216, K+ 3.4, Alb 2.8, elevated LFTs Meds noted: Tony Gomes Provided education/written information on diabetic diet. Rec OP DM education. Continue current diet as tolerated. [place] food preferences within diet restrictions. RD following. Thanks for the consult!
[2019-08-03 11:07] LABS: HCG SERUM NEGATIVE (NEGATIVE)
--- NOTE | 2019-08-03 11:21 | NUR ---
PATIENT TAKEN TO [employer] SERVICE SUPERVISOR
--- NOTE | 2019-08-03 12:16 | NUR ---
RECEIVED FROM HOG HANDLER. DRESSING TO LEFT GROIN CLEAN AND DRY. PATIENT FLAT. VSS. NSR. NS INFUSING AT 100ML/HR
--- NOTE | 2019-08-03 12:38 | NUR ---
PEDAL PULSE PALPABLE. CALLED REPORT TO NURSE. TRANFERRING VIA BED. DAUGHTER AND WITH PATIENT
--- NOTE | 2019-08-03 13:00 | NUR ---
RECEIVED FROM ICU. SURGICAL SITE TO LEFT FEMORAL DRESSING C/D/I. SHE AROUSES TO VERBAL STIMULI BUT IS DROWSY. RESP EVEN WITHOUT LABOR BBS ARE CLEAR PEDAL PULSES TO BILATERAL FEET WITH NO EDEMA NOTED. SURGICAL SITE TO RIGHT FEMORAL WITH FEW SPOTS OF OLD BLOOD ON DRESSING BUT BOTH THIGHS ARE SOFT. NO HEMATOMA OR ACTIVE BLEEDING NOTED. IV INFUSING IN RIGHT A/C SITE IS CLEAR. SALINE LOCK INTACT. ORIENT TO ROOM AND CL IS IN REACH. DENIES ANY C/O PAIN OR NEEDS AT THIS TIME. FAMILY AT BEDSIDE
--- NOTE | 2019-08-03 14:15 | NUR ---
TELEMETRY SHOWS HR OF 90 SR WITH ELEVATED T-WAVE AND BBB. SITE TO LEFT FEMORAL SHOWS VERY SMALL SPOT OF BLOOD ON DRESSING BUT NO HEMATOMA NOTED. PEDAL PULSE IS GOOD. SHE DENIES ANY CURRENT NEEDS. SHE HAS TOOK SOME ICE WATER AND TOLERATED THIS WELL. BED IN LOWEST POSITION AND LOCKED.
--- NOTE | 2019-08-03 15:45 | NUR ---
NOTIFIED CLERK TYPIST OF BLEEDING FROM LEFT FEMORAL SITE. HOMERO IS BLOODY AT SITE. RIGHT ABOVE SITE HER ABDOMEN IS HARD. THE REST OF HER ABDOMEN IS SOFT. VSS AT THIS TIME. SHE DID USE BEDPAN. PEDAL PULSE REMAINS INTACT. SHE DOES HAVE C/O BACK PAIN THAT HAS COME ON DUE TO HAVING TO LAY STILL. PRESSURE APPLIED.
--- NOTE | 2019-08-03 15:55 | NUR ---
FEMSTOP APPLIED TO LEFT FEMORAL PER TOILET PRODUCTS MOLDER. PRESSURE OF 146. DISTAL PULSES INTACT. NO CHANGE IN STATUS
--- NOTE | 2019-08-03 16:23 | NUR ---
HYDROCODONE 2 TABS GIVEN PO PER NEW ORDER. DR JORGENSEN IS AWARE OF FEMSTOP.
--- NOTE | 2019-08-03 17:00 | NUR ---
1/2 OF THE PRESSURE IS LEFT OUT OF FEMSTOP. SHE CONTINUES TO HAVE NO BLEEDING FROM NEW DRESSING. ABDOMEN REMAINS SOFT. SHE CONTINUES TO C/O BACK PAIN VSS I DID PAGE DR JORGENSEN TO SEE ABOUT SOMETHING MORE TO CONTROL PAIN
--- NOTE | 2019-08-03 17:15 | NUR ---
DEMOROL 50MG GIVEN IVP AT THIS TIME PER NEW GIVEN BY DR JORGENSEN. SHE CONTINUES TO C/O PAIN IN BACK AND HER LEG FROM FEMSTOP PLACEMENT. REPOSITONED AND FAN WAS PUT IN HER ROOM PER C/O BEING HOT. SHE HAS ALSO HAD DOSE OF ZOFRAN FOR NAUSEA. FAMILY AT BEDSIDE
[2019-08-04] VITALS: BP 94/54
[2019-08-04 04:00] VITALS: BP 105/66
[2019-08-04 06:22] LABS: BASOPHILS 0.2 % (0-2); EOSINOPHILS 2.7 % (0-7); HEMATOCRIT 37.5 % (36.0-48.0); HEMOGLOBIN 12.8 g/dL (12-16); IMMATURE GRANULOCYTES 0.4 % (0-5); LYMPHOCYTES 24.9 % (15-50); MCH 30.7 pg (26.0-34.0); MCHC 34.1 g/dL (31.0-37.0); MCV 89.9 fL (80.0-100.0); MEAN PLATELET VOLUME 11.3 fL (7.4-10.4); MONOCYTES 6.3 % (2-11); NEUTROPHILS 65.5 % (40-80); PLATELET COUNT 196 10x3/uL (130-400); RBC 4.17 10x6/uL (4.00-5.40); RDW 12.5 % (11.5-14.5); WBC 12.8 10x3/uL (4.8-10.8)
[2019-08-04 07:03] LABS: ALBUMIN 2.7 g/dL (3.4-5.0); ALKALINE PHOSPHATASE 169 U/L (46-116); ALT (SGPT) 98 U/L (10-68); BILIRUBIN - TOTAL 0.73 mg/dL (0.2-1.3); CALCIUM 8.3 mg/dL (8.5-10.1); CARBON DIOXIDE 25.4 mmol/L (21.0-32.0); CHLORIDE - SERUM 102 mmol/L (98-107); CREATININE - SERUM 0.5 mg/dL (0.6-1.3); POTASSIUM - SERUM 3.8 mmol/L (3.5-5.1); SODIUM 138 mmol/L (136-145); UREA NITROGEN 8 mg/dL (7-18); eGFR NON AFRICAN AMERICAN > 90 mL/min (90-120)
[2019-08-04 07:04] LABS: CALC OSMOLALITY 276 mosm/kg (275-300); GLUCOSE 159 mg/dL (74-106)
[2019-08-04 08:30] VITALS: BP 107/66
--- NOTE | 2019-08-04 12:05 | HP ---
PATIENT: MELISSA SALAS MEDICAL RECORD: [id number] ACCOUNT: [id number] LOCATION:[address] : 63 ADMISSION DATE: 08/02/19 PCP: No PCP HISTORY AND PHYSICAL EXAMINATION DIAGNOSES: 1. Acute anterior myocardial infarction. 2. Coronary artery disease. HISTORY OF PRESENT ILLNESS: Mrs. Salas has no previous cardiac history, no previous medical history, on no medications or seasonal medical care. She began having chest discomfort this evening. She presents to [facility]. She has an acute anterior myocardial infarction. She has flown here for higher level of care. She continues to have chest discomfort. She did get beta-gudelia, aspirin, heparin as well as TNK at [facility]. She continues to have ST elevation and chest discomfort. PHYSICAL EXAMINATION: CONSTITUTIONAL/GENERAL APPEARANCE: Well nourished, well developed, appears stated age. EYES: Lids and conjunctivae noninjected. No discharge. No pallor. ENT: Lips within normal limit. No cyanosis. No pallor. NECK: Carotid arteries, bilateral normal upstroke. No bruits. No thrills. No jugular venous pressure or distention. CERVICAL LYMPH NODES: Nontender. Nonenlarged. THYROID: Not enlarged. No nodules. CARDIOVASCULAR: Precordial exam, nondisplaced. No heaves or pericardial thrills. Rate and rhythm, regular. Heart sounds, normal S1, normal S2. No S3, no gallop, no rub. Systolic murmur, not heard. Diastolic murmur, not heard. RESPIRATORY: Respiratory effort, unlabored. Normal curvature. No thoracic deformity. No chest wall tenderness. Percussion, resonant. Auscultation, clear. No wheezes, no rales, no rhonchi. ABDOMEN: Soft, nondistended, nontender. No abdominal pain, no vomiting and normal appetite. MUSCULOSKELETAL: No joint tenderness, normal gait, normal tone. SKIN: Warm and dry. OVERALL IMPRESSION: Acute anterior myocardial infarction, failed thrombolytic therapy at this time, we will proceed with coronary angiography for emergent salvage. TRANSINT:[id number] Voice Confirmation ID: [id number] DOCUMENT ID: [id number] ALFONSO JORGENSEN MD at 1205 CC: [id number] DICTATION DATE: 08/02/19 0203 BOOK STORE ASSOCIATE: 08/02/19 0231 ADM IN [facility] [address] [id number]
[2019-08-04] MEDS ORDERED: PLAVIX75 MG PO (12:23)
[2019-08-04] MEDS ORDERED: LOPRESSOR25 MG PO (12:24)
[2019-08-04] MEDS ORDERED: PRAVACHOL40 MG (12:25)
--- NOTE | 2019-08-04 12:51 | NUR ---
PER PATIENT REQUEST, PRAVACHOL 40 MG #90, LOPRESSOR ER 25MG #90, AND PLAVIX 75MG #90 EACH WITH 3 REFILLS CALLED TO [facility]. SPOKE WITH ERIC
--- NOTE | 2019-08-04 12:54 | NUR ---
AMI GRACIA APN FOR DISCHARGE ORDERS R/T PO MEDS FOR DIABETIC. AWAITING CALL BACK.
[2019-08-04] MEDS ORDERED: GLUCOPHAGE500 MG PO ×2 (14:37→14:43)
--- NOTE | 2019-08-04 14:40 | NUR ---
VALERIA GRACIA APN TO CALL BACK WITH NEW ORDERS.
--- NOTE | 2019-08-04 14:46 | NUR ---
CALLED [place]-PHARMACIST AT [facility] FOR METFORMIN AND FOR DIABETIC SUPPLIES TO CHECK POC BLOOD SUGAR QID.
--- NOTE | 2019-08-04 15:13 | NUR ---
IV AND TELEMETRY DCD. DC PLANS GIVEN. UNDERSTANDING VOICED. ESCORTED TO CAR BY W/C.
--- NOTE | 2019-08-07 08:34 | MORECARE ---
CASE MANAGEMENT DISCHARGE SUMMARY PATIENT: MELISSA LACEY UNIT: [id number] ADM DATE: 08/02/19 AGE: 54 : 63 SEX: F ROOM/BED: D.0040 AUTHOR: RENA,DOC PHYSICIAN: REFERRING PHYSICIAN: ALFONSO JORGENSEN MD DATE OF SERVICE: 08/07/19 Discharge Plan Patient Name: MELISSA LACEY Facility: [facility]:[place] : 1965 Planned Disposition: Home Anticipated Discharge Date: 08/04/19 Discharge Date: 08/04/2019 Expected LOS: 2 Initial Reviewer: [email or web address] Initial Review Date: 08/02/2019 Generated: 08/07/19 9:34 am Comments DCP- Discharge Planning Updated by [email or web address]: Summer Cramer on 08/02/19 6:[address] Patient Name: MELISSA LACEY Admission Status: ER Accout number: [id number] Admission Date: 08-02-2019 : 1965 Admission Diagnosis: Attending: MAYLIN JORGENSEN Current LOS: 1 Anticipated DC Date: Planned Disposition: Home Primary Insurance: UNINSURED DISCOUNT PLAN Discharge Planning Comments: CM met with patient at bedside after explaining CM role and obtaining verbal consent. Patient lives at home with her Dennis where she is independent with her care and plans to return there upon discharge. Patient feels this would be a safe discharge. CM discussed availability / needs of home health and medical equipment. Patient denies any discharge needs at this time. Patient states she will have her family drive her home upon discharge. Patient doesn't have any insurance and med-data has been up to evaluate and patient doesn't qualify per patient. Patient may need assistance with discharge medications. CM will continue to follow and assist as needed with discharge planning / needs. Operations Manager Station: Summer Cramer DCPIA - Discharge Planning Initial Assessment Updated by [email or web address]: Summer Cramer on 08/02/19 7:18 pm * Is the patient Alert and Oriented? Yes * How many steps to enter\exit or inside your home? * PCP NO PCP * Pharmacy [facility] * Preadmission Environment Home with Family * ADLs Independent * Equipment None * List name and contact numbers for known caregivers / representatives who currently or will assist patient after discharge: DENNIS LACEY - SPOUSE -- [phone] * Verbal permission to speak to the caregivers and representatives has been obtained from the patient. No * Community resources currently utilized None * Additional services required to return to the preadmission environment? No * Can the patient safely return to the preadmission environment? Yes * Has this patient been hospitalized within the prior 30 days at any hospital? No Last DP export: 08/02/19 6:28 pm Patient Name: MELISSA LACEY Page [id number] at 0834 All edits/amendments must be made on the electronic document DICTATION DATE: 08/07/19833 POULTRY PICKER: [place] 08/07/19833 RPT#: [id number] DC DATE:08/04/19 STATUS: DIS IN [facility] [address] [place] [address] END OF REPORT
--- NOTE | 2019-08-09 14:31 | DS ---
PATIENT:MELISSA SALAS :63 MEDICAL RECORD: [id number] DISCHARGE SUMMARY ADMISSION DATE: 08/02/19 DISCHARGE DATE: 08/04/19 DISCHARGE DIAGNOSES: 1. Acute anterior myocardial infarction. 2. Coronary artery disease. 3. Percutaneous transluminal coronary angioplasty stent left anterior descending and right coronary artery this admission. 4. Hyperlipidemia. HOSPITAL COURSE: Mrs. Salas presents with an acute anterior myocardial infarction, underwent successful PTCA stent of the LAD. She had critical disease of the RCA, underwent successful PTCA stent of the RCA in a staged fashion, was discharged home with the addition of aspirin, Plavix, Pravachol, and Lopressor. Follow up with [facility] in 1 month. TRANSINT:[id number] Voice Confirmation ID: [id number] DOCUMENT ID: [id number] ALFONSO JORGENSEN MD at 1431 CC: [id number] DICTATION DATE: 08/04/19 1207 AGENCY LEGAL COUNSEL: 08/04/19 2245 DIS IN 08/04/19 [address] [place] [address]
--- NOTE | 2019-08-09 14:31 | OP ---
PATIENT NAME: MELISSA LACEY MEDICAL RECORD: [id number] :63 LOCATION:D.M2 D.2120 ADMISSION DATE:08/02/19 SURGEON: ALFONSO JORGENSEN MD DATE OF OPERATION: 08/03/2019 PROCEDURES: 1. PTCA stent RCA. 2. Selective coronary angiography. 3. IFR. INDICATION: Angina and coronary artery disease. PROCEDURE IN DETAIL: After informed consent was obtained and after a detailed description of risks, benefits as well as alternative therapies, the patient elected to proceed with angiogram and angioplasty. The left femoral area was prepped and draped in normal sterile fashion. Left femoral artery was cannulated via modified Seldinger technique with placement of 6-Chinese sheath. All catheters exchanged through this sheath. FINDINGS: Left circumflex has a questionable stenosis in the mid vessel; however, IFR was normal. Right coronary artery has 90% to 95% stenosis times 2. This was addressed with a 2.5 x 18 and 2.5 x 24 both Cobra stents. Result was 0% residual stenosis. OVERALL IMPRESSION: Successful percutaneous transluminal coronary angioplasty stent of the right coronary artery going from 90% to 95% initial stenosis to 0% residual. TRANSINT:[id number] Voice Confirmation ID: [id number] DOCUMENT ID: [id number] ALFONSO JORGENSEN MD at 1431 CC: [id number] DICTATION DATE: 08/03/19 1151 PAID SEARCH ANALYST: 08/03/19 1224 DIS IN 08/04/19 [facility] [address] [place] [id number]
--- NOTE | 2019-08-09 14:31 | EC ---
PATIENT:MELISSA LACEY DATE OF SERVICE: 08/02/19 SEX: F MEDICAL RECORD: [id number] DATE OF : [birth year] LOCATION:D. D.212 AGE OF PATIENT: 54 ADMISSION DATE: 08/02/19 REFERRING PHYSICIAN: INTERPRETING PHYSICIAN: ALFONSO HORAN MD ECHOCARDIOGRAM REPORT ECHO CHARGES 4 ECHO COMPLETE Date: 08/02/19 CLINICAL DIAGNOSIS: KS ECHOCARDIOGRAPHIC MEASUREMENTS (adult normal given) AC root (d.<3.7cm) 2.6 cm LV Septum d (<1.2 cm> 0.7 cm Valve Excursion 1.2 cm LV Septum (systole) 1.0 cm Left Atria (s.<4.0cm> 3.4 cm LVPW d(<1.2cm) 1.1 cm RV (d.<2.3cm) 2.5 cm LVPW (sytole) 1.3 cm LV diastole(<5.6CM) 5.9 cm MV E-F(>70mm/sec) cm LV systole 4.7 cm LVOT Diameter 1.3 cm MV exc.(>10mm) cm Est.ejection fraction (50-75%) % DOPPLER: LVIT cm/sec A 95 cm/sec E 81 cm/sec LA cm/sec RVSP 20.4 mmHg LVOT 125 cm/sec AOP1/2T m/s Asc. Ao 138 cm/sec RVOT 79 cm/sec RA cm/sec PA 87 cm/sec AV Gradient Peak 7.6 mmHg AV Mean 3.7 mmHg AV Area 1.0 cm MV Gradient Peak 6.1 mmHg MV Mean 3.2 mmHg MV Area cm COMMENTS: Debridging Machine Operator: Fran VALENTINMARIBELL [place] Hoop Driving Machine Operator: Rogerio Horan TAPE# PACS Pericardial Effusion N DATE OF SERVICE: 08/02/2019 FINDINGS: 1. Left ventricular chamber size is mildly dilated. Left ventricular systolic function is reduced at 35% to 40%. 2. Left atrium, right atrium, and right ventricular chamber sizes are within normal limits. 3. Valvular structures have normal structure and motion. 4. Doppler interrogation only reveals trace tricuspid regurgitation, no other valvular insufficiency or stenosis. Pulmonary systolic pressure is estimated at ECHOCARDIOGRAM REPORT [id number] MELISSA LACEY 20 mmHg. 5. No evidence of pericardial effusion or left ventricular thrombus. TRANSINT:[id number] Voice Confirmation ID: [id number] DOCUMENT ID: [id number] ALFONSO HORAN MD at 1431 CC: [id number] DICTATION DATE: 08/02/19 1545 MATHEMATICS PROFESSOR: 08/02/19 2304 DIS IN 08/04/19 [id number] [place] [id number]
--- NOTE | 2019-08-09 14:31 | OP ---
PATIENT NAME: MELISSA LACEY MEDICAL RECORD: [id number] :63 LOCATION:D.M2 D.2120 ADMISSION DATE:08/02/19 SURGEON: ALFONSO JORGENSEN MD DATE OF OPERATION: 08/02/2019 PROCEDURES: 1. PTCA and stent to the LAD. 2. Left heart catheterization. 3. Selective coronary angiography. 4. Left ventriculogram. INDICATIONS: Acute anterior myocardial infarction. DESCRIPTION OF PROCEDURE: After informed consent was obtained and after detailed description of risks, benefits as well as alternative therapies, the patient elected to proceed with angiogram and angioplasty. The right femoral area was prepped and draped in normal sterile fashion. Right femoral artery was cannulated via modified Seldinger technique with placement of 6-Martiniquais sheath. All catheters exchanged through this sheath. FINDINGS: Left ventriculogram was performed in standard 30-degree LEDEZMA view, reveals anteroapical hypokinesis, ejection fraction 30%. SELECTIVE CORONARY ANGIOGRAPHY: 1. Left main is with no significant angiographic disease. 2. Left anterior descending has 95% stenosis with active thrombus in the proximal aspect. 3. Left circumflex has 50% to 70% stenosis in the mid vessel. 4. Right coronary artery has 90% stenosis in the mid vessel. PTCA AND STENT OF THE LAD: The stent used was a 3.5 x 15 mm Cobra. Result was 0% residual stenosis. OVERALL IMPRESSION: Successful percutaneous transluminal angioplasty stent of the left anterior descending going from 95% initial stenosis to 0% residual. TRANSINT:[id number] Voice Confirmation ID: [id number] DOCUMENT ID: [id number] ALFONSO JORGENSEN MD at 1431 CC: [id number] DICTATION DATE: 08/02/19 0255 HEALTH INFORMATION MANAGEMENT DIRECTOR: 08/02/19 0314 DIS IN 08/04/19 [facility] [address] [place] [address]
== END 2019-08-04 15:14 | disposition home or self-care (01) | DRG 249 ==
LOC: D.ER 01:28 → D.CVICU 02:00 → D.M2 08-03 12:39
PROVIDERS: Emergency Medicine; Family Medicine; Family Medicine Adult Medicine; ADMIT Internal Medicine Interventional Cardiology; ATTEND Internal Medicine Interventional Cardiology
PROC: 4A023N7 Measurement of Cardiac Sampling and Pressure, Left Heart, Percutaneous Approach (ICD-10-PCS; 2019-08-02)
PROC: B2111ZZ Fluoroscopy of Multiple Coronary Arteries using Low Osmolar Contrast (ICD-10-PCS; 2019-08-02)
PROC: B2151ZZ Fluoroscopy of Left Heart using Low Osmolar Contrast (ICD-10-PCS; 2019-08-02)
PROC: 02703DZ Dilation of Coronary Artery, One Artery with Intraluminal Device, Percutaneous Approach (ICD-10-PCS; principal; 2019-08-02 02:08)
PROC: 02703EZ Dilation of Coronary Artery, One Artery with Two Intraluminal Devices, Percutaneous Approach (ICD-10-PCS; 2019-08-03)
PROC: 4A033BC Measurement of Arterial Pressure, Coronary, Percutaneous Approach (ICD-10-PCS; 2019-08-03)
DX: I21.09 ST elevation (STEMI) myocardial infarction involving other coronary artery of anterior wall (principal); I25.119 Atherosclerotic heart disease of native coronary artery with unspecified angina pectoris; E78.5 Hyperlipidemia, unspecified; E11.9 Type 2 diabetes mellitus without complications

== ENCOUNTER 2019-12-27 08:20 | Outpatient (CLI) | payer OTHER ==
[~2019-12-27] VITALS: Ht 165.1 cm; Wt 74.7 kg
--- NOTE | ~2019-12-27 | HEMODYNAMI ---
PATIENT:MELISSA SALAS MEDICAL RECORD: [id number] : 63 LOCATION:[facility] ADMISSION DATE: 12/27/19 Generatedon:12/28/20197:40 Patient name: MELISSA SALAS Patient #: [id number] SSN: : 1965 Date of study: 12/27/2019 Page: Of Hemodynamic Procedure Report Patient Data Patient Demographics Procedure consent was obtained First Name: MELISSA Gender: Female Last Name: DEEPTHI : 1965 Patient #: [id number] Age: 54 year(s) Race: Unknown Additional ID: [id number] Contact details Address: [address] [place] [address] State: [place] City: [place] Zip code: [address] Past Medical History Allergies Allergen Reaction Date Comments Reported Other allergy 08/03/2019 PCN, SULFA Other allergy 12/27/2019 PCN Admission Admission Data Admission Date: 12/27/2019 Admission Time: 8:20 Arrival Date: 12/27/2019 Arrival Time: 0:00 Admit Source: Other Insurance Payor: Private health insurance [facility] #: [id number] Height (in.): 64.96 BSA: 1.81 (m2) Height (cm.): 165 BMI: 27.18 (kg/m2) Weight (lbs.): 163.14 Weight (kg.): 74 Lab Results Lab Result Date: 12/27/2019 Lab Result Time: 0:00 Biochemistry Name Units Result Min Max BUN mg/dl 12 --(-*--)-- 7 18 Creatinine mg/dl 0.7 --(*---)-- 0.6 1.3 eGFR ml/min 90 --(*---)-- 90 120 NONAFRICAN CBC Name Units Result Min Max Hematocrit % 44.7 --(*---)-- 42 54 Hemoglobin g/dl 15.5 --(-*--)-- 13.5 17.5 Procedure Procedure Types Cath Procedure PCI Procedure Hemochron ACT Test Peripheral Cath Diagnostic Procedure Motor Builder Winder Peripheral Procedures AFRO (Diagnostic) Peripheral vascular Intervention Stent Stent Iliac w/plasty Initial Procedure Description Procedure Date Procedure Date: 12/27/2019 Procedure Start Time: 11:19 Procedure End Time: 11:48 Procedure Staff Name Function Benita Abida RN Nurse Parth Horan MD Performing Physician Soraya Tran RN Nurse Patricia Goyal RT Scrub Marianne Salas RT Monitor Procedure Data Cath Procedure Fluoroscopy Diagnostic fluoroscopy Total fluoroscopy Time: 5 time: 5 min min Diagnostic fluoroscopy Total fluoroscopy dose: dose: 1554 mGy 1554 mGy Contrast Material Contrast Material Type Amount (ml) Isovue 370 82 Entry Location Entry Primary Successful Side Size Upsize Upsize Entry Closure Succes sful Closure Location (Fr) 1 (Fr) 2 (Fr) Remarks Device Remarks Femoral Right 5 Fr 6 Fr Exoseal artery Long Femoral Left 6 Fr Exoseal artery Long Estimated blood loss: 10 ml Diagnostic catheters Device Type Used For End Catheter Placement DIAGNOSTIC UF 5Fr Procedure catheter ([id number]) Procedure Complications No complications Procedure Medications Medication Administration Route Dosage Oxygen etCO2 Nasal cannula 2 l/min Heparin Flush Bag added to field 2 bags (1000units/500ml NS) Lidocaine 2% added to field 20 Zofran I.V. 4 mg Fentanyl I.V. 50 mcg Versed I.V. 1 mg Fentanyl I.V. 50 mcg Versed I.V. 1 mg Fentanyl I.V. 50 mcg Versed I.V. 1 mg Heparin Bolus 4000 units Integrilin (Bolus 6.8 ml 2mg/ml) Fentanyl I.V. 50 mcg Versed I.V. 1 mg Plavix P.O. 600 mg Hemodynamics Rest BSA: 1.81 (m2) HGB: 15.5 (g/dl) O2 Consumption: Estimated: 188.61 (ml/min) O2 Co nsumption indexed: Estimated:104.2 (ml/min/m) Heart Rate: 91 (bpm) Snapshots Pre Cath Intra NCS Post Cath Vital Signs Time Heart Resp SPO2 etCO2 NIBP Rhythm Pain Sedation Rate (ipm) (%) (mmHg) (mmHg) Status Level (bpm) 10:42:17 91 21 96 29.2 116/67(88) NSR 0 (11) 10(A) , No pain 10:46:23 91 21 94 33.7 106/67(83) NSR 0 (11) 10(A) , No pain 10:50:29 88 18 93 11.2 97/60(77) NSR 0 (11) 10(A) , No pain 10:54:35 87 18 94 9.7 97/61(74) NSR 0 (11) 10(A) , No pain 10:58:39 87 18 94 9.7 98/61(77) NSR 0 (11) 10(A) , No pain 11:02:44 85 17 94 0 98/59(77) NSR 0 (11) 10(A) , No pain 11:06:48 87 18 94 14.2 102/64(80) NSR 0 (11) 10(A) , No pain 11:10:56 88 16 94 11.9 99/60(81) NSR 0 (11) 10(A) , No pain 11:15:02 87 17 95 9.7 101/63(81) NSR 0 (11) 10(A) , No pain 11:19:10 88 18 94 34.4 95/58(73) NSR 0 (11) 9(A) , No pain 11:23:15 86 15 93 0 86/59(67) NSR 0 (11) 9(A) , No pain 11:27:19 85 16 96 40.4 98/57(77) NSR 0 (11) 9(A) , No pain 11:31:29 85 16 94 0 84/50(63) NSR 0 (11) 9(A) , No pain 11:35:31 85 15 96 0 94/54(75) NSR 0 (11) 10(A) , No pain 11:39:35 85 16 96 0 98/61(80) NSR 0 (11) 9(A) , No pain 11:43:40 86 14 96 0 98/62(81) NSR 0 (11) 9(A) , No pain 11:47:40 0 No Cuff NSR 0 (11) 9(A) , No pain Medications Time Medication Route Dose Verified Delivered Reason Notes Effectiveness by by 10:40:19 Oxygen etCO2 2 Soraya Soraya Per protocol Nasal l/min Tran Tran cannula RN RN 10:40:33 Heparin Flush added 2 Soraya Soraya used for Bag to bags Tran Tran procedure (1000units/500ml RN RN NS) 10:40:45 Lidocaine 2% added 20ml Soraya Parth used for to vial Marc Horan MD procedure field RN 10:41:03 Zofran I.V. 4 mg Soraya Soraya for nausea Marc Tran RN RN 11:15:56 Fentanyl I.V. 50 Soraya Soraya for sedation mcg Marc Tran RN RN 11:16:01 Versed I.V. 1 mg Soraya Soraya for sedation Marc Tran RN RN 11:19:45 Fentanyl I.V. 50 Soraya Soraya for sedation mcg Marc Tran RN RN 11:19:48 Versed I.V. 1 mg Soraya Soraya for sedation Marc Tran RN RN 11:23:29 Fentanyl I.V. 50 Soraya Soraya for sedation mcg Marc Tran RN RN 11:23:33 Heparin Bolus 4000 Soraya Soraya for hepar in units Marc Tran anticoagulation verified RN RN with benita tai rn 11:23:33 Versed I.V. 1 mg Soraya Soraya for sedation Marc Tran RN RN 11:25:11 Integrilin 6.8ml Soraya Soraya 3.2cc (Bolus 2mg/ml) Tranmarge Tran integrilin RN RN wasted 11:27:40 Fentanyl I.V. 50 Soraya Soraya for sedation mcg Marc Tran RN RN 11:27:46 Versed I.V. 1 mg Soraya Soraya for sedation Marc Tran RN RN 11:38:50 Plavix P.O. 600 Soraya Soraya for mg Marc Tran antiplatelet RN RN therapy Procedure Log Time Note 10:13:33 Informed consent obtained and on chart 10:23:31 Lab results completed and on chart. 10::59 Lab Result : Hemoglobin 15.5 g/dl 10::59 Lab Result : Hematocrit 44.7 % 10::59 Lab Result : eGFR NONAFRICAN 90 ml/min 10::59 Lab Result : BUN 12 mg/dl 10:23:59 Lab Result : Creatinine 0.7 mg/dl 10:24:15 Stress Test: no; N/A ? 10:24:25 Procedure Status Peripheral. 10:24:29 Patricia Goyal RT(R) sent for patient. Start room use. 10:24:44 Diagnostic Cath Status : Elective 10:25:00 Arrival Date: 12/27/2019 12:00:00 AM 10:25:01 Admit Source: Other 10:25:03 Patient Weight : 163.14 lbs 10:25:05 Patient Height : 64.96 inches 10:25:13 Insurance Payor : Private health insurance 10:29:34 H&P Date Dictated: 12/21/2019 Within 30 days and on chart.. 10:29:35 Pre-procedure instructions explained to patient. 10:29:36 Pre-op teaching completed and patient verbalized understanding. 10:29:38 Family in waiting room. 10:29:40 Patient NPO since Midnight. 10:29:59 Patient allergic to Other allergyPCN 10:30:05 Time tracking: Regular hours (M-F 7:00 - 5:00) 10:30:10 Plan of Care:Hemodynamics will remain stable., Cardiac rhythm will remain stable., Comfort level will be maintained., Respiratory function will remain adequate., Patient/ family verbilizes understanding of procedure., Procedure tolerated without complication., Recovers from procedure without complications.. 10:30:16 Patient received from Pre/Post Procedure Room to CCL 1 Alert and oriented. Tansferred to table in Supine position. 10:30:18 Correct patient and procedure confirmed by team. 10:30:18 Warm blankets applied, and rangel hugger turned on for patient comfort. 10:30:19 ECG and BP/O2 sat monitors applied to patient. 10:30:41 Is the patient allergic to Iodine/contrast media? No. 10:30:43 Is patient on blood thinner?No 10:30:46 Patient diabetic? Yes. 10:30:48 If diabetic: On Metformin? Yes 10:30:53 If on Metformin: Last Dose? 12/25/2019 10:30:56 Patient not . Patient is over age 55. 10:31:01 ----Pre-sedation anethsthesia assessment.---- 10:31:16 Previous problem with sedation/anesthesia? Yes NAUSEA 10:31:18 Snore? Yes 10:31:20 Sleep apnea? No 10:31:21 Deviated septum? No 10:31:22 Opens mouth fully? Yes 10:31:23 Sticks out tongue? Yes 10:31:26 Airway obstruction? No ? 10:31:30 Dentures? No ? 10:31:45 Alarms reviewed by Martha N. 10:31:46 Sharps counted by scrub and verified by R.N. 10:38:52 Patient pain scale 0/10 ?. 10:39:15 IV patent on arrival in left forearm with 0.9% NaCl at [facility]. 10:39:28 Bilateral groins area was prepped with chlora-prep and draped in sterile fashion 10:39:35 Use device set CATH PACK 10:39:49 ACIST Hand Control (13124) opened to sterile field. 10:39:49 ACIST Syringe (35711) opened to sterile field. 10:39:50 Medline Cath Pack ([id number]) opened to sterile field. 10:39:50 ACIST Manifold (23315) opened to sterile field. 10:39:51 EMERALD Guide Wire (476-811) opened to sterile field. 10:39:51 Bag Decanter (2002S) opened to sterile field. 10:40:19 Oxygen 2 l/min etCO2 Nasal cannula was administered by Soraya Tran RN; Per protocol; Verbal order read back and verified. 10:40:33 Heparin Flush Bag (1000units/500ml NS) 2 bags added to field was administered by Soraya Tran RN; used for procedure; Verbal order read back and verified. 10:40:45 Lidocaine 2% 20ml vial added to field was administered by Parth Horan MD; used for procedure; Verbal order read back and verified. 10:41:03 Zofran 4 mg I.V. was administered by Soraya Tran RN; for nausea; Verbal order read back and verified. 10:41:16 Vital chart was started 10:42:03 Baseline sample Acquired. 10:42:06 Rhythm: sinus rhythm 10:42:07 Full Disclosure recording started 11:15:33 Final Timeout: patient, procedure, and site verified with staff and physician. All members of the team are in agreement. 11:15:33 --------ALL STOP TIME OUT------ 11:15:39 Bilateral groins site verified by team. 11:15:45 Fire Safety Assessment: A--An alcohol-based skin anteseptic being used preoperatively., C--Open oxygen or nitrous oxide is being used., D--An ESU, laser, or fiber-optic light is being used. 11:15:49 Physical assessment completed. ASA score P 2 - A patient with mild systemic disease as per Parth Horan MD. 11:15:52 1) 90+ Normal kidney functon but urine findings or structural abnormalities or genetic trait point to kidney disease. 11:15:55 Maximum allowable contrast dose (3.7 X eGFR X 0.75)250 ml. 11:15:56 Fentanyl 50 mcg I.V. was administered by Soraya Tran RN; for sedation; Verbal order read back and verified. 11:16:00 Sedation plan: IV Moderate Sedation Medication:Versed, Fentanyl 11:16:01 Versed 1 mg I.V. was administered by Soraya Tran RN; for sedation; Verbal order read back and verified. 11:18:55 Procedure started. 11:19:11 Local anesthetic to right femoral artery with Lidocaine 2% by Parth Horan MD.INITIAL ACCESS ONLY 11:19:45 Fentanyl 50 mcg I.V. was administered by Soraya Tran RN; for sedation; Verbal order read back and verified. 11:19:48 Versed 1 mg I.V. was administered by Soraya Tran RN; for sedation; Verbal order read back and verified. 11:20:59 A 5 Fr sheath was inserted into the Right Femoral artery 11:21:44 A DIAGNOSTIC UF 5Fr catheter ([id number]) was advanced over the wire and used for Procedure. 11:22:04 Abdominal angiogram w/ runoff was performed. 11:22:20 Injector settings: Ml/sec: 10, Volume: 20, 11:22:28 Left leg runoff performed. 11:22:38 Injector settings: Ml/sec: 10, Volume: 20, 11:23:03 Local anesthetic to left femerol artery with Lidocaine 2% by Parth Horan MD.ADDITIONAL ACCESS 11:23:04 A 6 Fr Long sheath was inserted into the Left Femoral artery 11:23:29 Fentanyl 50 mcg I.V. was administered by Soraya Tran RN; for sedation; Verbal order read back and verified. 11:23:33 Heparin Bolus 4000 units was administered by Soraya Tran RN; for anticoagulation; heparin verified with benita tai rn Verbal order read back and verified. 11:23:33 Versed 1 mg I.V. was administered by Soraya Tran RN; for sedation; Verbal order read back and verified. 11:24:07 SHEATH 6FR Brite Tip 35cm ([id number]) opened to sterile field. 11:24:08 SHEATH 6FR Brite Tip 35cm ([id number]) opened to sterile field. 11:24:28 EMERALD Guide Wire (039-867) opened to sterile field. 11:25:11 Integrilin (Bolus 2mg/ml) 6.8ml was administered by Soraya Tran RN; ; 3.2cc integrilin wasted Verbal order read back and verified. 11:25:21 INFLATOR Merit BasixCompak (LM8001) opened to sterile field. 11:25:43 Sheath upsized to a 6 Fr Long. 11:27:07 EXCAHNGED 6FR SHORT ON LT FOR 6FR BRITE TIP SHEATH. 11:27:40 Fentanyl 50 mcg I.V. was administered by Soraya Tran RN; for sedation; Verbal order read back and verified. 11:27:46 Versed 1 mg I.V. was administered by Soraya Tran RN; for sedation; Verbal order read back and verified. 11:28:41 GLIDE WIRE ANGLE 260cm ([id number]) opened to sterile field. 11:30:07 Right leg runoff performed. 11:30:22 RT ILIAC STENT INSERTED OVER WIRE. 11:32:00 Place stent Inflation Number: 1 A ELAYNE 8 x 18 x 135 stent ([id number]) was prepped and advanced across the Mid Common Iliac, Right . The stent was deployed at 11 MAGALIS for 0:00 (min:sec) . 11:32:20 STENT INSERTED TO THE LEFT ILIAC. 11:32:45 Inflation number: 1 The stent balloon was then re-inflated across the Mid Common Iliac, Left to 9 MAGALIS for 0:00 (min:sec) . 11:33:25 Stent catheter was removed intact over wire. 11:34:41 Place stent Inflation Number: 2 A EV3 Visi Pro 8.0 x 27 x 80 stent ([id number]) was prepped and advanced across the Mid Common Iliac, Left . The stent was deployed at 9 MAGALIS for 0:00 (min:sec) . 11:35:18 LT SIDE 6FR LONG SHEATH EXCHANGED FOR THE 6FR SHORT SHEATH. 11:35:19 SHEATH 6FR [place] ([id number]) opened to sterile field. 11:35:26 EXOSEAL 6Fr (EX600) opened to sterile field. 11:36:03 RT SIDE SHEATH 6FR LONG EXCHANGED FOR THE SHORT SHEATH. 11:36:04 EXOSEAL 6Fr (EX600) opened to sterile field. 11:37:56 Sheath removed intact; hemostasis achieved with Exoseal to the Right Femoral artery. 11:38:02 Sheath removed intact; hemostasis achieved with Exoseal to the Left Femoral artery. 11:38:04 Procedure ended.(Physican Out) 11:38:16 Fluoroscopy time 05.00 minutes. 11:38:50 Plavix 600 mg P.O. was administered by Soraya Tran RN; for antiplatelet therapy; Verbal order read back and verified. 11:38:59 Fluoroscopy dose: 1554 mGy 11:38:59 Flurop Dose total: 1554 11:39:05 Dose Area Product 82813 mGy/cm. 11:39:10 Contrast amount:Isovue 370 82ml. 11:39:14 Sharps counted by scrub and verified by R.N. 11:39:14 Maximum allowable dose exceeded? No. 11:39:21 Post-op/insertion site Right Femoral artery dressed using a 4 x 4 and Tegaderm. 11:39:25 Post-op/insertion site Left Femoral artery dressed using a 4 x 4 and Tegaderm. 11:39:30 Post right femoral artery:stable, soft, clean and dry 11:39:38 Post left femerol artery:stable, soft, clean and dry 11:39:41 Post Procedure Pulses reassessed and unchanged 11:39:47 Post-procedure physical assessment completed. ASA score P 2 - A patient with mild systemic disease as per Parth Horan MD. 11:39:56 Post procedure rhythm: unchanged. 11:39:59 Estimated blood loss: 10 ml 11:40:01 Post procedure instruction explained to patient.Patient verbalizes understanding. 11:40:02 Patient needs reinforcement of post procedure teaching. 11:40:08 Procedure Complication : No complications 11:40:15 [facility] Findings: MVD- PCI performed (see procedure note) 11:40:17 See physician's report for complete and final results. 11:40:17 Operative report dictated upon procedure completion. 11:40:19 Report given to Pre/Post Procedure Room. 11:40:23 Patient transfered to Pre/Post Procedure Room with Stretcher. 11:41:11 ACT drawn and resulted at 313 seconds. (normal therapeutic range 180-240 seconds). 11:45:03 Procedure type changed to Cath procedure, PCI procedure, Hemochron ACT Test, Peripheral Cath Diagnostic Procedure, Motor Builder Winder Peripheral Procedures, AFRO (Diagnostic), Peripheral vascular Intervention, Stent, Stent Iliac w/plasty Initial 11:48:41 Procedure and supply charges have been captured, reviewed, submitted and are correct. 11:48:42 Vital chart was stopped 11:48:45 Full Disclosure recording stopped 11:48:45 Procedure ended. 11:49:18 ACC-PCI Only Patient was given prescriptions, or instructed by Parth Horan MD to start/continue the following medications upon discharge: Plavix 11:49:19 End room use (Document Last) 11:49:47 End room use (Document Last) 11:50:10 End room use (Document Last) Intervention Summary Intervention Notes Time ActionType Lesion and Equipment Used Action# Pressure Duration Attributes 11:32:00 Place stent Mid Common ELAYNE 8 x 18 1 11 00:00 Iliac, x 135 stent Right ([id number]) 11:32:45 Reinflate Mid Common ELAYNE 8 x 18 1 9 00:00 stent Iliac, Left x 135 stent balloon ([id number]) 11:34:41 Place stent Mid Common EV3 Visi Pro 2 9 00:00 Iliac, Left 8.0 x 27 x 80 stent ([id number]) Device Usage Item Name Manufacture Quantity Catalog Number Hospital Part Current Minimal Lot# / Charge Number Stock Stock Serial# Code ACIST Syringe Acist 1 97053 110374 097833 542583 20 (85314) Medical Systems Inc ACIST Hand Acist 1 24078 471386 991169 322225 5 Control Medical (39142) [employer] ACIST Manifold Acist 1 08691 355943 178904 808996 5 (37391) Medical Systems Inc Medline Cath Medline 1 [id number] 282522 19603 433717 5 Pack ([id number]) Bag Decanter Microtek 1 561067 86906 660089 5 () Medical Inc. EMERALD Guide Cardinal 2 502-455 786932 768097 798601 5 Wire (502-455) Health DIAGNOSTIC UF Cardinal 1 [id number] 465928 594118 059127 10 5Fr catheter Health (108237Q4) SHEATH 6FR Cardinal 2 [id number] 774069 975207 565288 1 Brite Tip 35cm Health ([id number]) INFLATOR Merit Merit 1 QC3739 514206 812858 918010 15 XRONet ([id number]) GLIDE WIRE Terumo 1 CR5558 692883 696752 131336 5 ANGLE 260cm ([id number]) ELAYNE 8 x 18 Cardinal 1 [id number] 156973 217664 719214 5 x 135 stent Health ([id number]) EV3 Visi Pro Medtronic 1 [id number] 073811 177110 5 8.0 x 27 x 80 stent ([id number]) SHEATH 6FR Terumo 1 [id number] 847463 978543 545655 40 [place] (XVR454) EXOSEAL 6Fr Cardinal 2 EX600 107529 822443 402294 10 (EX600) Health Signature Audit Everson Stage Time Signature Unsigned Intra-Procedure 12/27/2019 Marianne Salas 11:49:47 AM RT(R) Intra-Procedure 12/27/2019 Benita Tai RN 11:50:10 AM Intra-Procedure 12/27/2019 Parth Horan MD 11:50:23 AM 12/28/2019 7:38:33 AM Intra-Procedure 12/28/2019 Parth Horan 7:39:47 AM Intra-Procedure 12/28/2019 Parth Horan 7:40:15 AM [id number] [place] [address]
[~2019-12-27 08:20] MED LIST: GLUCOPHAGE500 MG PO; LOPRESSOR25 MG PO; PLAVIX75 MG PO; PRAVACHOL40 MG
[2019-12-27] MEDS ORDERED: PRAVACHOL40 MG PO (08:47)
[2019-12-27 08:56] VITALS: BP 127/70; Ht 165.1 cm; Wt 74.7 kg
[2019-12-27 09:14] LABS: CALC OSMOLALITY 280 mosm/kg (275-300); CALCIUM 9.5 mg/dL (8.5-10.1); CARBON DIOXIDE 27.6 mmol/L (21.0-32.0); CHLORIDE - SERUM 103 mmol/L (98-107); CREATININE - SERUM 0.7 mg/dL (0.6-1.3); GLUCOSE 138 mg/dL (74-106); POTASSIUM - SERUM 4.2 mmol/L (3.5-5.1); SODIUM 140 mmol/L (136-145); UREA NITROGEN 12 mg/dL (7-18); eGFR NON AFRICAN AMERICAN > 90 mL/min (90-120)
[2019-12-27 09:19] LABS: BASOPHILS 0.2 % (0-2); EOSINOPHILS 4.3 % (0-7); HEMATOCRIT 44.7 % (36.0-48.0); HEMOGLOBIN 15.5 g/dL (12-16); IMMATURE GRANULOCYTES 0.2 % (0-5); MCH 30.3 pg (26.0-34.0); MCHC 34.7 g/dL (31.0-37.0); MCV 87.5 fL (80.0-100.0); MONOCYTES 5.3 % (2-11); RBC 5.11 10x6/uL (4.00-5.40); RDW 13.6 % (11.5-14.5); WBC 12.2 10x3/uL (4.8-10.8)
[2019-12-27 09:30] LABS: PLATELET COUNT 304 10x3/uL (130-400)
[2019-12-27] MEDS ORDERED: PLAVIX75 MG PO (11:52)
[2019-12-27] MEDS ORDERED: BAYER CHEWABLE81 MG PO (11:52)
--- NOTE | 2019-12-27 11:55 | NUR ---
PT RECEIVED VIA STRETCHER FROM DINKEY OPERATOR SLAG FOR RECOVERY. PT SLEEPING BUT VERBALLY AROUSABLE. PT DENIES PAIN OR DISCOMFORT. PT PLACED ON CARDIAC MONITORS AND O2 VIA NC. IV PATENT INFUSING VIA ORDERS. HR NSR RATE 89, BP 107/67, RR 17, SAT 95. R AND L GROIN SOFT, 6FR EXOCELE ON BOTH. DRESSINGS CDI NO S/S HEMATOMA X2. LEGS PINK AND WARM. PT INSTRUCTED TO KEEP HEAD ON PILLOW AND BOTH LEGS STRAIGHT SHE VERBALIZED UNDERSTANDING. DR JORGENSEN OUT AND SPOKE WITH DAUGHTER REGARDING PLAN OF CARE AND PROCEDURE RESULTS. CALL LIGHT IN REACH.
--- NOTE | 2019-12-27 12:15 | NUR ---
PT C/O NAUSEA, ORDERS RECEIVED. COOL CLOTH TO FORHEAD, EMESIS BAG IN REACH. VSS. R AND L GROIN REMAIN SOFT, DRESSING CDI NO S/S HEMATOMA NOTED. PEDAL PULSES AUDIBLE. CALL LIGHT IN REACH
--- NOTE | 2019-12-27 12:27 | NUR ---
2MG ZOPRAN GIVEN SIVP FOR NAUSEA.
--- NOTE | 2019-12-27 13:02 | NUR ---
R AND L GROIN DRESSINGS REMAIN CDI NO S/S HEMATOMA NOTED. VSS. CALL LIGHT IN REACH, FAMILY REMAINS AT BEDSIDE.
--- NOTE | 2019-12-27 13:35 | NUR ---
PT UNABLE TO VOID ON BEDPAN. C/O BACK PAIN 06/07. NORCO GIVEN PER ORDERS W SIPS OF SPRITE. BOTH GROINS REMAIN SOFT, NO S/S HEMATOMA NOTED. VSS. FAMILY AT BS. CALL LIGHT IN REACH
--- NOTE | 2019-12-27 14:05 | NUR ---
PT PLACED ON BEDPAN, BOTH GROINS REMAIN SOFT, DRESSINGS CDI NO S/S HEMATOMA NOTED. VSS. CALL LIGHT IN REACH. PT DENIES OTHER NEEDS AT THIS TIME. PAIN SOME BETTER.
--- NOTE | 2019-12-27 14:35 | NUR ---
PT STILL ON BEDPAN, UNABLE TO VOID AT THIS TIME BUT WANTS TO KEEP TRYING. BOTH GROINS REMAIN SOFT, NO S/S HEMATOMA NOTED. PT DENIES PAIN OR OTHER NEEDS AT THIS TIME. FAMILY REMAIN AT BS, CALL LIGHT IN REACH
--- NOTE | 2019-12-27 15:10 | NUR ---
BEDPAN REMOVED, STILL UNABLE TO VOID. GROIN SOFT X2 . DRESSING CDI NO S/S HEMATOMA NOTED. HOB ELEVATED SLIGHTLY. PUDDING AND DRINK SERVED. PT DENIES PAIN OR NEEDS AT THIS TIME. VSS. CALL LIGHT IN REACH, FAMILY REMAIN AT BS.
--- NOTE | 2019-12-27 15:35 | NUR ---
DISCHARGE INSTRUCTIONS REVIEWED W PT AND FAMILY, ALL VERBALIZED UNDERSTANDING. REVIEWED MEDICATION LIST AND IMPORTANCE OF GETTING PLAVIX FILLED AND TO BEGIN TOMORROW. IV REMOVED W CATH INTACT, MONITORS REMOVED. BOTH GROINS SOFT, DRESSING CDI NO S/S HEMATOMA NOTED. PT UP TO DRESS FOR DISCHARGE
--- NOTE | 2019-12-27 15:50 | NUR ---
PT TO BR VIA WC, VOIDED W/O DIFFICULITY. PT THEN DISCHARGED VIA WC TO WAITING IN PRIVATE VEHICLE. PT HAD ALL BELONGINGS AND DISCHARGE PAPERWORK.
--- NOTE | 2019-12-28 12:54 | OP ---
PATIENT NAME: MELISSA LACEY MEDICAL RECORD: [id number] :63 LOCATION:D.CAT ADMISSION DATE: SURGEON: ALFONSO JORGENSEN MD DATE OF OPERATION: 12/27/2019 PROCEDURES: 1. BRASS MOLDER stent left and right iliac ostium. 2. Aortofemoral runoff. 3. Abdominal aortography. INDICATION: Claudication and peripheral vascular disease. PROCEDURE IN DETAIL: After informed consent was obtained and after a detailed description of risks, benefits as well as alternative therapies, the patient elected to proceed with angiogram and angioplasty. Both femoral areas were prepped and draped in normal sterile fashion. Both femoral artery was cannulated via modified Seldinger technique with placement of 6-English sheath bilaterally. All catheters exchanged through this sheath. FINDINGS: Abdominal aortography was performed. The catheter pulled down for aortofemoral runoff. Abdominal aortography reveals no significant abdominal aortic disease, no dissection or aneurysm formation. RIGHT LEG: A. Iliac: The common iliac has 80-85% stenosis at the ostium. Otherwise, the iliacs have moderate irregularities, but no flow-limiting stenosis. B. Femoral system: The common superficial and deep femoral have moderate irregularities, but no flow-limiting stenosis. C. Popliteal and infrapopliteal vessels are widely patent with good 3-vessell runoff to the foot. LEFT LEG: A. Iliac: The common iliac has 80% stenosis at the ostium, otherwise the iliacs have only moderate irregularities. B. Femoral system: The common superficial and deep femoral have moderate irregularities, but no flow-limiting stenosis. C. Popliteal and infrapopliteal vessels are widely patent with good 3-vessel runoff to the foot. BRASS MOLDER STENT OF BOTH ILIACS: Both iliacs were addressed. The right iliac was addressed with an 8 x 18 Gwendolyn stent. The left iliac with an 8 x 17 EV3 stent. Result was 0% residual. IMPRESSION: Successful percutaneous transluminal angioplasty stent of both iliacs going from 80% to 85% initial stenosis to 0% residual. TRANSINT:[id number] Voice Confirmation ID: [id number] DOCUMENT ID: [id number] OPERATIVE REPORT [id number] MELISSA LACEY JEFFREY MD at 1254 CC: [id number] DICTATION DATE: 12/27/19 1143 CLASSIFIER TENDER: 12/27/19 4536 DEP CLI 12/27/19 [facility] [address] [place] [id number]
== END 2019-12-27 15:50 | disposition home or self-care (01) ==
LOC: D.CATH 08:20
PROVIDERS: ATTEND Internal Medicine Interventional Cardiology
DX: I73.9 Peripheral vascular disease, unspecified (principal); I25.10 Atherosclerotic heart disease of native coronary artery without angina pectoris; E11.9 Type 2 diabetes mellitus without complications; Z79.84 Long term (current) use of oral hypoglycemic drugs; I10 Essential (primary) hypertension; Z72.0 Tobacco use; E78.5 Hyperlipidemia, unspecified